=== PATIENT | male | born 1945 | race African-American/Black ===

== ENCOUNTER 2018-01-28 21:41 | Inpatient (IN) | payer MEDICARE, OTHER ==
[~2018-01-28] VITALS: Ht 167.6 cm; Wt 72.6 kg
[~2018-01-28 21:41] MED LIST: CEFTRIAXONE1 G1 IJ; FUROSEMIDE20 M1 ORAL; HYDRALAZINE HCL50 MG ORAL; LABETALOL HCL200 MG ORAL; MULTIVITAMINS1 EAC2 ORAL; NORVASC10 MG ORAL; TYLENOL EXTRA500 MG ORAL; TYLENOL PO; ZOCOR20 M1 ORAL
[2018-01-28] MEDS ORDERED: Pantoprazole Inj IVP ONE (21:45)
[2018-01-28] MEDS ORDERED: MILK OF MA400 MG/51 ORAL (21:57)
[2018-01-28] MEDS ORDERED: LASIX20 M1 ORAL (21:57)
[2018-01-28] MEDS ORDERED: DULCOLAX10 MG RC (21:57)
[2018-01-28] MEDS ORDERED: VITAMIN D1000 UNI1 ORAL (21:57)
[2018-01-28] MEDS ORDERED: ASPIR 8181 MG ORAL (21:57)
[2018-01-28] MEDS ORDERED: FLEET ENEMA133 ML RECTAL (21:57)
[2018-01-28 22:00] VITALS: BP 156/79
[2018-01-28 22:19] LABS: BASOPHILS % (AUTO) 0.5 % (0.0-2.0); EOSINOPHILS % (AUTO) 1.3 % (0.0-3.0); HEMATOCRIT 35.1 % (42.0-52.0); HEMOGLOBIN 11.6 G/DL (14.2-18.0); LYMPHOCYTES % (AUTO) 26.3 % (20.0-45.0); MEAN CORPUSCULAR VOLUME 93 FL (80-99); MONOCYTES % (AUTO) 5.4 % (1.0-10.0); NEUTROPHILS % (AUTO) 66.6 % (45.0-75.0); PLATELET COUNT 196 K/UL (150-450); RED BLOOD COUNT 3.76 M/UL (4.70-6.10); RED CELL DISTRIBUTION WIDTH 12.7 % (11.6-14.8); WHITE BLOOD COUNT 9.1 K/UL (4.8-10.8)
[2018-01-28 22:35] LABS: ANION GAP 12 mmol/L (5-15); BLOOD UREA NITROGEN 31 mg/dL (7-18); CALCIUM 10.5 MG/DL (8.5-10.1); CARBON DIOXIDE 26 MMOL/L (21-32); CHLORIDE 113 MMOL/L (98-107); CREATININE 2.2 MG/DL (0.55-1.30); POTASSIUM 3.2 MMOL/L (3.5-5.1); SODIUM 151 MMOL/L (136-145)
[2018-01-28 22:45] LABS: ALANINE AMINOTRANSFERASE 31 U/L (12-78); ALBUMIN 3.7 G/DL (3.4-5.0); ALBUMIN/GLOBULIN RATIO 0.9 (1.0-2.7); ALKALINE PHOSPHATASE 81 U/L (46-116); ASPARTATE AMINO TRANSFERASE 23 U/L (15-37); BILIRUBIN,TOTAL 0.3 MG/DL (0.2-1.0); CREATINE KINASE 285 U/L (26-308)
[2018-01-28 22:56] LABS: APPEARANCE,URINE SLIGHTLY CLOUDY; BILIRUBIN, URINE NEGATIVE (NEGATIVE); COLOR,URINE YELLOW; GLUCOSE, URINE (UA) NEGATIVE (NEGATIVE); KETONES,URINE NEGATIVE (NEGATIVE); LEUKOCYTE ESTERASE ,URINE 1+ (NEGATIVE); NITRITE,URINE NEGATIVE (NEGATIVE); PH,URINE 6 (4.5-8.0); PROTEIN,URINE 3+ (NEGATIVE); UROBILINOGEN,URINE NORMAL MG/DL (0.0-1.0)
--- NOTE | 2018-01-28 22:56 | Emergency Room Report ---
History of Present Illness General Chief Complaint: Fever Source: Patient, Medical Record, EMS Present Illness HPI 72-year-old male, history of CVA, with paresis, bedbound, brought in by shelter for vomiting, coffee-ground emesis, and fever. Patient with normal blood pressure. Patient was given Tylenol at 5 PM prior to arrival. He had a MAXIMUM TEMPERATURE of 102.4 per medical chart. Patient is awake alert oriented 2, however very poor historian. States that he vomited "a little", denies any black or bloody stool. Denies any current pain right now. Allergies: Coded Allergies: No Known Allergies (Unverified , 07/28/16) Patient History Past Medical History: see triage record Past Surgical History: none Pertinent Family History: none Reviewed Nursing Documentation: PMH: Agreed; PSxH: Agreed Nursing Documentation-PMH Past Medical History: No History, Except For Hx Hypertension: Yes Hx Cerebrovascular Accident: Yes - hemiplegia, hemiparesis left side Hx Seizures: Yes Hx Epilepsy: Yes Hx Aphasia: Yes Review of Systems All Other Systems: negative except mentioned in HPI Physical Exam Vital Signs Date Time Temp Pulse Resp B/P (MAP) Pulse Ox O2 Delivery O2 Flow Rate FiO2 01/28/18 21:34 98.4 84 18 134/82 97 Room Air 98.4 Sp02 EP Interpretation: reviewed, normal General Appearance: alert, moderate distress, thin, other - oriented x 2, Chronically Ill Head: normocephalic, atraumatic Eyes: bilateral eye normal inspection, bilateral eye PERRL, bilateral eye EOMI ENT: normal ENT inspection, normal pharynx, normal voice, moist mucus membranes Neck: normal inspection, full range of motion, supple Respiratory: normal inspection, lungs clear, normal breath sounds, no respiratory distress, no retraction, no wheezing, speaking full sentences, chest symmetrical Cardiovascular #1: normal inspection, regular rate, rhythm, no edema, normal capillary refill Cardiovascular #2: 2+ radial (R), 2+ radial (L) Gastrointestinal: other - RLQ mild tenderness no guarding or rigidity Rectal: other - yellow stool guiac NEG Genitourinary: no CVA tenderness Musculoskeletal: normal inspection, back normal, normal range of motion, non- tender Neurologic: alert, other - moves ext on command Psychiatric: normal inspection, judgement/insight normal, memory normal Skin: normal inspection, normal color, no rash, warm/dry, well hydrated, normal turgor Medical Decision Making Diagnostic Impression: Primary Impression: Acute renal failure Additional Impressions: UTI (urinary tract infection) Fever ER Course 72-year-old male, fever, vomiting, history of coffee-ground emesis DDX: Abscess, UTI, pneumonia, intra-abdominal pathology such as diverticulitis, appendicitis Coffee-ground emesis, gastritis, ulcer disease Plan: Obtain labs, ua, EKG, CXR CT abdo pelvis ER course: Patient has been monitored during ED stay, HD stable Given Protonix, fluids No active coffee-ground emesis, no melena Ceftriaxone given for UTI fluids given Disposition: Patient is to be admitted to telemetry Patient was signed out to Dr Swanson, who has accepted patient for admission. Please note that this Emergency Department Report was dictated using [employer] worker technology software, occasionally this can lead to erroneous entry secondary to interpretation by the dictation equipment. EKG Diagnostic Results EP Interpretation: Yes Rate: normal Rhythm: NSR ST Segments: No acute changes ASA given to patient: No Rhythm Strip EP Interpretation: Yes Rate: 88 Rhythm: NSR, no PVCs, no ectopy Chest X-ray CXR: Ordered: Yes 1 view Indication: Pain EP interpretation: Yes Interpretation: Cardiomegaly no infiltrates Impression: Cardiomegaly no infiltrates Electronically signed by Ric Traylor MD Laboratory Tests Test 01/28/18 21:50 01/28/18 22:30 White Blood Count 9.1 K/UL (4.8-10.8) Red Blood Count 3.76 M/UL (4.70-6.10) L Hemoglobin 11.6 G/DL (14.2-18.0) L Hematocrit 35.1 % (42.0-52.0) L Mean Corpuscular Volume 93 FL (80-99) Mean Corpuscular Hemoglobin 30.9 PG (27.0-31.0) Mean Corpuscular Hemoglobin Concent 33.2 G/DL (32.0-36.0) Red Cell Distribution Width 12.7 % (11.6-14.8) Platelet Count 196 K/UL (150-450) Mean Platelet Volume 6.7 FL (6.5-10.1) Neutrophils (%) (Auto) 66.6 % (45.0-75.0) Lymphocytes (%) (Auto) 26.3 % (20.0-45.0) Monocytes (%) (Auto) 5.4 % (1.0-10.0) Eosinophils (%) (Auto) 1.3 % (0.0-3.0) Basophils (%) (Auto) 0.5 % (0.0-2.0) Prothrombin Time 10.9 SEC (9.30-11.50) Prothrombin Time INR 1.0 (0.9-1.1) PTT 24 SEC (23-33) Sodium Level 151 MMOL/L (136-145) H Potassium Level 3.2 MMOL/L (3.5-5.1) L Chloride Level 113 MMOL/L (98-107) H Carbon Dioxide Level 26 MMOL/L (21-32) Anion Gap 12 mmol/L (5-15) Blood Urea Nitrogen 31 mg/dL (7-18) H Creatinine 2.2 MG/DL (0.55-1.30) H Estimate Glomerular Filtration Rate mL/min (>60) Glucose Level 116 MG/DL (74-106) H Lactic Acid Level 1.00 mmol/L (0.66-2.22) Calcium Level 10.5 MG/DL (8.5-10.1) H Total Bilirubin 0.3 MG/DL (0.2-1.0) Aspartate Amino Transferase (AST) 23 U/L (15-37) Alanine Aminotransferase (ALT) 31 U/L (12-78) Alkaline Phosphatase 81 U/L (46-116) Total Creatine Kinase 285 U/L (26-308) Troponin I 0.038 ng/mL (0.000-0.056) Pro-B-Type Natriuretic Peptide 426 pg/mL (0-125) H Total Protein 7.8 G/DL (6.4-8.2) Albumin 3.7 G/DL (3.4-5.0) Globulin 4.1 g/dL Albumin/Globulin Ratio 0.9 (1.0-2.7) L Urine Color Yellow Urine Appearance Slightly cloudy Urine pH 6 (4.5-8.0) Urine Specific [place] 1.010 (1.005-1.035) Urine Protein 3+ (NEGATIVE) H Urine Glucose (UA) Negative (NEGATIVE) Urine Ketones Negative (NEGATIVE) Urine Occult Blood 2+ (NEGATIVE) H Urine Nitrite Negative (NEGATIVE) Urine Bilirubin Negative (NEGATIVE) Urine Urobilinogen Normal MG/DL (0.0-1.0) Urine Leukocyte Esterase 1+ (NEGATIVE) H Urine RBC 5-10 /HPF (0 - 0) H Urine WBC 5-10 /HPF (0 - 0) H Urine Squamous Epithelial Cells None /LPF (NONE/OCC) Urine Bacteria Many /HPF (NONE) H Microbiology Date/Time Source Procedure Growth Status 01/28/18 22:00 Nasal Nares Influenza Types A,B Antigen (AUDREY) - Final Complete CT/MRI/US Diagnostic Results CT/MRI/US Diagnostic Results : Imaging Test Ordered: CT ABDO PELVIS Impression CT ABDOMEN & PELVIS Without Contrast: There is significant fecal distention of the distal colon compatible with impaction. Equivocal wall thickening of the bladder. Portions of the bladder compressed by descending colon limiting evaluation. Correlate with UA if there is concern for cystitis. Diverticulosis. No diverticulitis. Cholelithiasis. No evidence for appendicitis. Renal lesions. Some likely simple cysts. Others have density greater than that of simple cysts. No urinary tract calculi or hydronephrosis. Questionable wall thickening of the stomach may relate to underdistention. Correlate for gastritis. Adrenal thickening. Postop changes right femur. Cardiomegaly. Trace pericardial fluid and/or thickening. Small hiatal hernia. Atelectasis. Last Vital Signs Date Time Temp Pulse Resp B/P (MAP) Pulse Ox O2 Delivery O2 Flow Rate FiO2 01/28/18 21:34 98.4 84 18 134/82 97 Room Air 98.4 Disposition: ADMITTED INPATIENT Condition: Serious Referrals: KEY SHELLEY MD (PCP) Ric Traylor M.D. Jan 28, 2018 22:56
[2018-01-28] MEDS ORDERED: cefTRIAXone 1 GM in NS 55 ML IVPB ONE (23:15)
[2018-01-28] MEDS ORDERED: LORazepam Inj 2mg/ml 1ml IV ONE (23:45)
[2018-01-29 00:28] VITALS: BP 142/61
[2018-01-29 06:50] VITALS: BP 145/94
[2018-01-29] MEDS: Pantoprazole Inj IVP SCH ×2 (09:23→21:24)
[2018-01-29 09:45] VITALS: BP 99/52
--- NOTE | 2018-01-29 09:58 | Diagnostic Imaging Report ---
Indication: Chest pain Technique: One view of the chest Comparison: 07/30/2016 Findings: The heart is borderline enlarged. The lungs and pleural spaces are clear. The aorta is tortuous and calcified. No significant interim change Impression: No acute process Mild cardiomegaly
[2018-01-29 10:53] LABS: HEMATOCRIT 31.9 % (42.0-52.0); HEMOGLOBIN 10.3 G/DL (14.2-18.0); MEAN CORPUSCULAR VOLUME 95 FL (80-99); PLATELET COUNT 150 K/UL (150-450); RED BLOOD COUNT 3.37 M/UL (4.70-6.10); RED CELL DISTRIBUTION WIDTH 13.1 % (11.6-14.8); WHITE BLOOD COUNT 4.9 K/UL (4.8-10.8)
--- NOTE | 2018-01-29 10:58 | History & Physical ---
History and Physical History & Physicial Dictated for Int Med-Dr Rodriguez no. [id number]. JONATHAN HUANG Jan 29, 2018 10:58
--- NOTE | 2018-01-29 11:16 | GI Initial Consult Note ---
DeliaPatricia Nguyen N.P. 01/29/18 1116: History of Present Illness General Date patient seen: Jan 29, 2018 Time patient seen: 11:11 Reason for Hospitalization: Fever Referring physician: NIMISHA PEGUERO Reason for Consultation: COFFEE GROUNDS Present Illness HPI 72-year-old male, history of CVA, with paresis, bedbound, brought in by [facility] for vomiting, coffee-ground emesis, and fever. Patient with normal blood pressure. Patient was given Tylenol at 5 PM prior to arrival. He had a MAXIMUM TEMPERATURE of 102.4 per medical chart. Patient is awake alert oriented 2, however very poor historian. States that he vomited "a little", denies any black or bloody stool. Denies any current pain right now. GI consulted for reports of coffee round emesis. Since admission, no reported active N/V/D. ROS limited, patient is poor historian, but A&Ox3. States he had endoscopy last year, colonoscopy x 3 years but cannot recall any of the results. He presents today with mild anemia and electrolyte imbalance. Denies any abdominal pain, constipation, diarrhea. Home Meds Active Scripts Ceftriaxone Sodium (CEFTRIAXONE) 1 Gm Vial, 1 GM IJ DAILY for 7 Days, VIAL Prov:KY LACEY 08/03/16 Reported Medications Cholecalciferol (Vitamin D3)* (VITAMIN D*) 1,000 Unit Tablet, 1000 UNIT ORAL DAILY, #30 TAB 01/28/18 Magnesium Hydroxide* (MILK OF MAGNESIA*) 400 Mg/5 Ml Oral.susp, 30 ML ORAL DAILY PRN for Constipation, ML 01/28/18 Furosemide* (LASIX*) 20 Mg Tablet, 20 MG ORAL DAILY, TAB 01/28/18 Na Phos,M-B/Na Phos,Di-Ba* (FLEET ENEMA*) 133 Ml Enema, 133 ML RECTAL DAILY PRN for Constipation for 2 Days, ML 0 Refills 01/28/18 Bisacodyl (DULCOLAX) 10 Mg Supp.rect, 10 MG RC, SUPP 01/28/18 Aspirin* (ASPIR 81*) 81 Mg Tablet.dr, 81 MG ORAL DAILY, TAB 01/28/18 [Tylenol] No Conflict Check, 650 MG PO EVERY 4 HOURS PRN for TEMP 07/28/16 Acetaminophen* (TYLENOL EXTRA STRENGTH*) 500 Mg Tablet, 2 TAB ORAL EVERY 4 HOURS for For Pain Level <=5, TAB 0 Refills 07/28/16 Simvastatin (ZOCOR) 20 Mg Tablet, 20 MG ORAL BEDTIME, TAB 07/28/16 Amlodipine Besylate (Norvasc) 10 Mg Tablet, 10 MG ORAL DAILY, TAB 07/28/16 Multivitamins* (MULTIVITAMINS*) 1 Each Tablet, 1 TAB ORAL DAILY, TAB 0 Refills 07/28/16 Labetalol Hcl* (NORMODYNE*) 200 Mg Tablet, 2 TAB ORAL BID, TAB 07/28/16 Hydralazine Hcl* (HYDRALAZINE HCL*) 50 Mg Tablet, 50 MG ORAL QID, TAB 07/28/16 Med list reviewed/reconciled: Yes Allergies: Coded Allergies: No Known Allergies (Unverified , 07/28/16) Patient History Limited by: medical condition History Provided By: Patient, Medical Record PMH Narrative Past Medical History: see triage record Past Surgical History: none Pertinent Family History: none Reviewed Nursing Documentation: PMH: Agreed; PSxH: Agreed Nursing Documentation-PMH Past Medical History: No History, Except For Hx Hypertension: Yes Hx Cerebrovascular Accident: Yes - hemiplegia, hemiparesis left side Hx Seizures: Yes Hx Epilepsy: Yes Hx Aphasia: Yes Social History: Denies: smoking, alcohol use, drug use, other Physical Exam Vital Signs Date Time Temp Pulse Resp B/P (MAP) Pulse Ox O2 Delivery O2 Flow Rate FiO2 01/28/18 21:34 98.4 84 18 134/82 97 Room Air 98.4 Sp02 EP Interpretation: reviewed, normal Labs Laboratory Tests Test 01/28/18 21:50 01/28/18 22:30 01/29/18 10:40 White Blood Count 9.1 K/UL (4.8-10.8) 4.9 K/UL (4.8-10.8) Red Blood Count 3.76 M/UL (4.70-6.10) L 3.37 M/UL (4.70-6.10) L Hemoglobin 11.6 G/DL (14.2-18.0) L 10.3 G/DL (14.2-18.0) L Hematocrit 35.1 % (42.0-52.0) L 31.9 % (42.0-52.0) L Mean Corpuscular Volume 93 FL (80-99) 95 FL (80-99) Mean Corpuscular Hemoglobin 30.9 PG (27.0-31.0) 30.4 PG (27.0-31.0) Mean Corpuscular Hemoglobin Concent 33.2 G/DL (32.0-36.0) 32.1 G/DL (32.0-36.0) Red Cell Distribution Width 12.7 % (11.6-14.8) 13.1 % (11.6-14.8) Platelet Count 196 K/UL (150-450) 150 K/UL (150-450) Mean Platelet Volume 6.7 FL (6.5-10.1) 6.0 FL (6.5-10.1) L Neutrophils (%) (Auto) 66.6 % (45.0-75.0) % (45.0-75.0) Lymphocytes (%) (Auto) 26.3 % (20.0-45.0) % (20.0-45.0) Monocytes (%) (Auto) 5.4 % (1.0-10.0) % (1.0-10.0) Eosinophils (%) (Auto) 1.3 % (0.0-3.0) % (0.0-3.0) Basophils (%) (Auto) 0.5 % (0.0-2.0) % (0.0-2.0) Prothrombin Time 10.9 SEC (9.30-11.50) Prothromb Time International Ratio 1.0 (0.9-1.1) Activated Partial Thromboplast Time 24 SEC (23-33) Sodium Level 151 MMOL/L (136-145) H Potassium Level 3.2 MMOL/L (3.5-5.1) L Chloride Level 113 MMOL/L (98-107) H Carbon Dioxide Level 26 MMOL/L (21-32) Anion Gap 12 mmol/L (5-15) Blood Urea Nitrogen 31 mg/dL (7-18) H Creatinine 2.2 MG/DL (0.55-1.30) H Estimat Glomerular Filtration Rate mL/min (>60) Glucose Level 116 MG/DL (74-106) H Lactic Acid Level 1.00 mmol/L (0.66-2.22) Calcium Level 10.5 MG/DL (8.5-10.1) H Total Bilirubin 0.3 MG/DL (0.2-1.0) Aspartate Amino Transf (AST/SGOT) 23 U/L (15-37) Alanine Aminotransferase (ALT/SGPT) 31 U/L (12-78) Alkaline Phosphatase 81 U/L (46-116) Total Creatine Kinase 285 U/L (26-308) Troponin I 0.038 ng/mL (0.000-0.056) Pro-B-Type Natriuretic Peptide 426 pg/mL (0-125) H Total Protein 7.8 G/DL (6.4-8.2) Albumin 3.7 G/DL (3.4-5.0) Globulin 4.1 g/dL Albumin/Globulin Ratio 0.9 (1.0-2.7) L Urine Color Yellow Urine Appearance Slightly cloudy Urine pH 6 (4.5-8.0) Urine Specific [place] 1.010 (1.005-1.035) Urine Protein 3+ (NEGATIVE) H Urine Glucose (UA) Negative (NEGATIVE) Urine Ketones Negative (NEGATIVE) Urine Occult Blood 2+ (NEGATIVE) H Urine Nitrite Negative (NEGATIVE) Urine Bilirubin Negative (NEGATIVE) Urine Urobilinogen Normal MG/DL (0.0-1.0) Urine Leukocyte Esterase 1+ (NEGATIVE) H Urine RBC 5-10 /HPF (0 - 0) H Urine WBC 5-10 /HPF (0 - 0) H Urine Squamous Epithelial Cells None /LPF (NONE/OCC) Urine Bacteria Many /HPF (NONE) H Neutrophils % (Manual) Pending Lymphocytes % (Manual) Pending Platelet Estimate Pending Platelet Morphology Pending General Appearance: well appearing, no apparent distress, alert, thin Head: normocephalic EENT: PERRL/EOMI, normal ENT inspection Neck: supple Respiratory: normal breath sounds, no respiratory distress Cardiovascular: normal rate Gastrointestinal: normal inspection, non tender, soft, normal bowel sounds, non -distended Rectal: deferred Genitourinary: deferred Neurologic: normal inspection, alert, oriented x3, responsive Psychiatric: normal inspection, judgement/insight normal, memory normal Skin: normal inspection, normal color, no rash, warm/dry, palpation normal, well hydrated Lymphatic: normal inspection, no adenopathy Other Organ Systems Left side weakness. Current Medications Current Medications Medications (Trade) Dose Ordered Sig/Thien Route PRN Reason Start Time Stop Time Status Last Admin Dose Admin Dextrose/ Electrolytes 1,000 ml @ 75 mls/hr [id number] IV 01/29/18 12:00 02/28/18 11:59 Pantoprazole (Protonix) 40 mg EVERY 12 HOURS IVP 01/29/18 09:15 02/28/18 09:14 01/29/18 09:23 GI: Plan Problems: (1) Anemia (2) Coffee ground emesis Plan EGD scheduled for tomorrow. - CLD + IVFs, then NPO @ [facility]. - hold all blood thinners anemia work up OB stool r/o GI bleed monitor H&H, prn transfusions bowel regime ppi fu labs Discussed with Dr. Jones. Thank you for this patient referral, we will follow. KERRY JONES 01/30/18 1320: History of Present Illness General Reason for Hospitalization: Fever Present Illness Home Meds Active Scripts Ceftriaxone Sodium (CEFTRIAXONE) 1 Gm Vial, 1 GM IJ DAILY for 7 Days, VIAL Prov:KY LACEY 08/03/16 Reported Medications Cholecalciferol (Vitamin D3)* (VITAMIN D*) 1,000 Unit Tablet, 1000 UNIT ORAL DAILY, #30 TAB 01/28/18 Magnesium Hydroxide* (MILK OF MAGNESIA*) 400 Mg/5 Ml Oral.susp, 30 ML ORAL DAILY PRN for Constipation, ML 01/28/18 Furosemide* (LASIX*) 20 Mg Tablet, 20 MG ORAL DAILY, TAB 01/28/18 Na Phos,M-B/Na Phos,Di-Ba* (FLEET ENEMA*) 133 Ml Enema, 133 ML RECTAL DAILY PRN for Constipation for 2 Days, ML 0 Refills 01/28/18 Bisacodyl (DULCOLAX) 10 Mg Supp.rect, 10 MG RC, SUPP 01/28/18 Aspirin* (ASPIR 81*) 81 Mg Tablet.dr, 81 MG ORAL DAILY, TAB 01/28/18 [Tylenol] No Conflict Check, 650 MG PO EVERY 4 HOURS PRN for TEMP 07/28/16 Acetaminophen* (TYLENOL EXTRA STRENGTH*) 500 Mg Tablet, 2 TAB ORAL EVERY 4 HOURS for For Pain Level <=5, TAB 0 Refills 07/28/16 Simvastatin (ZOCOR) 20 Mg Tablet, 20 MG ORAL BEDTIME, TAB 07/28/16 Amlodipine Besylate (Norvasc) 10 Mg Tablet, 10 MG ORAL DAILY, TAB 07/28/16 Multivitamins* (MULTIVITAMINS*) 1 Each Tablet, 1 TAB ORAL DAILY, TAB 0 Refills 07/28/16 Labetalol Hcl* (NORMODYNE*) 200 Mg Tablet, 2 TAB ORAL BID, TAB 07/28/16 Hydralazine Hcl* (HYDRALAZINE HCL*) 50 Mg Tablet, 50 MG ORAL QID, TAB 07/28/16 Allergies: Coded Allergies: No Known Allergies (Unverified , 07/28/16) GI: Plan Plan The patient was seen and examined at bedside and all new and available data was reviewed in the patients chart. I agree with the above findings, impression and plan. (Patient seen earlier today. Signature stamp does not reflect patient encounter time.). - MD [facility] Patrick N.PFlorencio Jan 29, 2018 11:16 KERRY JONES Jan 30, 2018 13:20
[2018-01-29] MEDS ORDERED: Milk of Magnesia 30ml Ud ORAL PRN (11:45)
[2018-01-29 12:00] VITALS: BP 113/70
[2018-01-29] MEDS: D5W w/KCl 20mEq 1,000 ML IV SCH (12:46)
[2018-01-29] MEDS: HydrALAZINE 50mg tab ORAL SCH ×2 (12:58→19:12)
--- NOTE | 2018-01-29 13:29 | Diagnostic Imaging Report ---
Indication: Abdominal pain Technique: Spiral acquisitions obtained through the abdomen and pelvis. No oral contrast utilized, per emergency room physician request No IV contrast utilized, per emergency room physician request.. Multiplanar reconstructions were generated. Total dose length product 667.97 mGycm. CTDIvol(s) 12.33 mGy. Dose reduction achieved using automated exposure control Comparison: None Findings: The rectum is markedly distended by stool. There is considerable retained fecal debris in general. There are colonic diverticula. No evidence of diverticulitis the appendix is normal. No small bowel distention. The distal esophagus, stomach, duodenum are unremarkable. Lack of IV contrast limits assessment of the solid organs. The liver is grossly unremarkable. The gallbladder contains multiple gallstones. The gallbladder wall is not thickened. The pancreas, spleen, right adrenal are unremarkable. Left adrenal is diffusely bulky. The kidneys demonstrate multiple exophytic masses which demonstrate indeterminate soft tissue attenuation, more numerous on the left than on the right. There are also fluid attenuation cysts present bilaterally. No retroperitoneal or mesenteric mass or adenopathy. The bladder is thick walled. The prostate is mildly enlarged. The included lung bases are clear. The bones demonstrate degenerative spondylosis changes. There is evidence of prior surgery to the right femur. The heart is mildly enlarged. There is minimal anterior pericardial thickening versus fluid. Impression: Evidence of constipation and likely rectal fecal impaction No acute process otherwise Colonic diverticulosis Cholelithiasis Multiple renal lesions of indeterminate attenuation. Most likely proteinaceous cysts, given evidence of multiple bilateral renal cysts and absence of solid lesions on prior sonogram of 07/29/2016. Nonetheless, repeat sonography is recommended. This was discussed in person with Dr. Rodriguez Evidence of bladder wall thickening, may indicate cystitis or chronic bladder outlet obstruction Cardiomegaly Small anterior wall pericardial thickening versus fluid Nonspecific diffuse left adrenal enlargement. This agrees with the preliminary interpretation provided overnight by [facility] teleradiology service. The CT scanner at [facility] is accredited by the [employer] and the scans are performed using protocols designed to limit radiation exposure to as low as reasonably achievable to attain images of sufficient resolution adequate for diagnostic evaluation.
[2018-01-29] MEDS: Piperacillin/Tazobactam 3.375 GM in D5W 110 ML IVPB SCH ×2 (15:33→22:55)
[2018-01-29 16:00] VITALS: BP 114/82
[2018-01-29] MEDS: Vancomycin 1 GM in D5W 275 ML IVPB SCH (18:02)
--- NOTE | 2018-01-29 18:46 | History and Physical Report ---
DATE OF ADMISSION: 01/28/2018 CHIEF COMPLAINT: The patient is a 72-year-old male presents with chief complaint of coffee-ground emesis. HISTORY OF PRESENT ILLNESS: The patient is a resident of [facility]. According to staff at [facility], the patient began to experience nausea and vomiting yesterday January 28, 2018. Nursing staff reports large amounts of coffee-ground emesis. The patient was transported to [place] emergency room. Initial hemoglobin was found to be 11.6. The patient is admitted with probable upper gastrointestinal hemorrhage. REVIEW OF SYSTEMS: CONSTITUTIONAL: The patient denies weight loss or weight gain. The patient has had fevers of up to 102 degrees Fahrenheit at the nursing note. HEENT: The patient denies ear or throat pain. The patient denies headache. CARDIOVASCULAR: The patient denies palpitations or chest pain. CHEST: The patient denies wheeze or shortness of breath. ABDOMINAL: The patient complains of nausea and vomiting as above. The patient complains of hematemesis as above. The patient denies diarrhea or constipation. GENITOURINARY: The patient denies dysuria or increased frequency of urination. NEUROMUSCULAR: The patient denies seizures or generalized weakness. The patient does have left hemiplegia. PAST MEDICAL HISTORY: Significant. 1. Hypertension. 2. Hypercholesterolemia. 3. Seizure disorder. 4. History of cerebrovascular disease. 5. Left hemiplegia. 6. Hypercholesterolemia. 7. Expressive aphasia. PAST SURGICAL HISTORY: Significant for inguinal hernia repair. CURRENT MEDICATIONS: 1. Amlodipine 10 mg p.o. daily. 2. Aspirin 81 mg p.o. daily. 3. Labetalol 200 mg p.o. twice daily. 4. Lasix 20 mg p.o. daily. 5. Multivitamin p.o. daily. 6. Simvastatin 20 mg p.o. at bedtime. 7. Tylenol 650 mg p.o. q.4 hours. 8. Vitamin D 1000 units p.o. daily. ALLERGIES: No known drug allergies. SOCIAL HISTORY: The patient is and is a resident of [facility]. The patient denies tobacco use having quit in 2015. The patient denies alcohol use. PHYSICAL EXAMINATION: VITAL SIGNS: Temperature 98.2, respirations 21, pulse 87, blood pressure 156/79. GENERAL: The patient is well-developed and well-nourished male, in no apparent distress. HEENT: Eyes, pupils are equal and responsive to light and accommodation. Extraocular movements are intact. NECK: Supple without lymphadenopathy. CHEST: Lungs are clear to auscultation bilaterally without wheezes or rales. CARDIOVASCULAR: Regular rate. S1 and S2 are normal without murmurs, rubs, or gallops. ABDOMEN: Soft, nontender, and nondistended. Positive bowel sounds. No evidence of hepatosplenomegaly. Currently, no rebound or guarding noted. EXTREMITIES: Negative for clubbing, cyanosis, or edema. RECTAL/GENITAL: Refused. NEUROLOGIC: The patient does have a left hemiparesis. Otherwise right-sided motor strength 4/5 on the right and 2/5 on the left. LABORATORY STUDIES: WBC 9.1, hemoglobin 11.6, hematocrit 35.1, platelets 196,000. Sodium 151, potassium 3.2, chloride 113, CO2 26, BUN 31, creatinine 2.2, glucose 116. Troponin elevated at 0.038. BNP elevated at 426. ASSESSMENT: This is a 72-year-old male. 1. Hematemesis. 2. Probable upper gastrointestinal hemorrhage. 3. Hypertension. 4. Hypercholesterolemia. 5. Seizure disorder. 6. Cerebrovascular disease. 7. Left hemiplegia. 8. Hypercholesterolemia. 9. Expressive aphasia. TREATMENT: 1. Upper gastrointestinal hemorrhage/hematemesis. A Gastroenterology consultation obtained with Dr. Petar Hicks. The patient may require endoscopy during this hospitalization. The patient has been placed empirically on Protonix. 2. Fever, this has resolved during the hospitalization. 3. Hypertension. Continue Lopressor and Norvasc as above. Hydralazine, labetalol, and amlodipine as above. 4. Cerebrovascular disease/left hemiplegia. 5. Seizure disorder. 6. Hypercholesteremia. Continue Lipitor as above. 7. Expressive aphasia. Sharif Daniel M.D. DR: Adeline JOB#: [id number] CC:
[2018-01-29 20:00] VITALS: BP 120/76
[2018-01-29] MEDS: Labetalol 200mg tab ORAL SCH (21:23)
[2018-01-29 21:37] LABS: HEMATOCRIT 30.5 % (42.0-52.0); HEMOGLOBIN 10.2 G/DL (14.2-18.0); MEAN CORPUSCULAR VOLUME 95 FL (80-99); PLATELET COUNT 164 K/UL (150-450); RED BLOOD COUNT 3.23 M/UL (4.70-6.10); RED CELL DISTRIBUTION WIDTH 13.3 % (11.6-14.8)
[2018-01-29 21:46] LABS: WHITE BLOOD COUNT 24.4 K/UL (4.8-10.8)
[2018-01-30] VITALS: BP 105/60
[2018-01-30] MEDS: HydrALAZINE 50mg tab ORAL SCH ×3 (00:20→11:24)
[2018-01-30] MEDS: D5W w/KCl 20mEq 1,000 ML IV SCH ×3 (02:17→18:21)
[2018-01-30 04:00] VITALS: BP 99/50
[2018-01-30] MEDS: Piperacillin/Tazobactam 3.375 GM in D5W 110 ML IVPB SCH ×3 (06:35→21:41)
[2018-01-30 06:51] LABS: INR 1.2 (0.9-1.1)
[2018-01-30 06:54] LABS: ANION GAP 13 mmol/L (5-15); BLOOD UREA NITROGEN 41 mg/dL (7-18); CALCIUM 9.6 MG/DL (8.5-10.1); CARBON DIOXIDE 24 MMOL/L (21-32); CHLORIDE 115 MMOL/L (98-107); CREATININE 3.1 MG/DL (0.55-1.30); HEMATOCRIT 31.1 % (42.0-52.0); HEMOGLOBIN 10.6 G/DL (14.2-18.0); MEAN CORPUSCULAR VOLUME 94 FL (80-99); PLATELET COUNT 168 K/UL (150-450); POTASSIUM 3.8 MMOL/L (3.5-5.1); RED BLOOD COUNT 3.31 M/UL (4.70-6.10); RED CELL DISTRIBUTION WIDTH 13.4 % (11.6-14.8); SODIUM 152 MMOL/L (136-145)
--- NOTE | 2018-01-30 07:17 | General Progress Note ---
Assessment/Plan Status: stable Assessment/Plan 1. Probable upper gastrointestinal hemorrhage. 2. UTI 3. Hypertension. 4. Hypercholesterolemia. 5. Non compliance with treatment 6. Cerebrovascular disease. 7. Left hemiplegia. 8. Hypercholesterolemia. 9. Expressive aphasia. 10. GI-DVT prophylaxia plan: Non compliant to IV abx, ID input to modify abx is appreciated New Leukocytosis, leukemoid reaction ?! current management ST eval increase IV fluid Subjective Allergies: Coded Allergies: No Known Allergies (Unverified , 07/28/16) Objective Last 24 Hour Vital Signs Date Time Temp Pulse Resp B/P (MAP) Pulse Ox O2 Delivery O2 Flow Rate FiO2 01/30/18 06:00 103/58 01/30/18 04:00 97.0 95 21 99/50 99 Room Air 97.0 01/30/18 04:00 99 01/30/18 00:20 100/60 01/30/18 00:00 97.2 98 20 105/60 98 97.2 01/30/18 00:00 100 01/29/18 21:23 111 120/76 01/29/18 20:00 97.7 111 22 120/76 100 Room Air 97.7 01/29/18 20:00 118 01/29/18 19:12 114/82 01/29/18 16:00 97.8 110 20 114/82 97 Room Air 97.8 01/29/18 16:00 92 01/29/18 12:58 113/70 01/29/18 12:00 117 01/29/18 12:00 98.1 110 19 113/70 97 Room Air 98.1 01/29/18 09:45 98.1 116 20 99/52 95 Room Air 98.1 01/29/18 09:41 97.7 114 26 104/53 98 Room Air 98.0 Intake and Output 01/29/18 01/30/18 19:00 07:00 Intake Total 380 ml Balance 380 ml Intake Oral 380 ml # Voids 2 1 # Bowel Movements 1 Laboratory Tests 01/29/18 10:40: White Blood Count 4.9, Red Blood Count 3.37L, Hemoglobin 10.3L, Hematocrit 31.9L , Mean Corpuscular Volume 95, Mean Corpuscular Hemoglobin 30.4, Mean Corpuscular Hemoglobin Concent 32.1, Red Cell Distribution Width 13.1, Platelet Count 150, Mean Platelet Volume 6.0L, Neutrophils (%) (Auto) , Lymphocytes (%) ( Auto) , Monocytes (%) (Auto) , Eosinophils (%) (Auto) , Basophils (%) (Auto) , Differential Total Cells Counted 100, Neutrophils % (Manual) 89H, Lymphocytes % (Manual) 1L, Monocytes % (Manual) 4, Eosinophils % (Manual) 0, Basophils % ( Manual) 0, Band Neutrophils 6, Platelet Estimate Adequate, Platelet Morphology Normal, Red Blood Cell Morphology , Hypochromasia 1+, Troponin I 0.047 01/29/18 16:00: Stool Occult Blood [Pending] 01/29/18 21:27: White Blood Count 24.4#*H, Red Blood Count 3.23L, Hemoglobin 10.2L, Hematocrit 30.5L, Mean Corpuscular Volume 95, Mean Corpuscular Hemoglobin 31.5H, Mean Corpuscular Hemoglobin Concent 33.3, Red Cell Distribution Width 13.3, Platelet Count 164, Mean Platelet Volume 7.4, Neutrophils (%) (Auto) , Lymphocytes (%) ( Auto) , Monocytes (%) (Auto) , Eosinophils (%) (Auto) , Basophils (%) (Auto) , Differential Total Cells Counted 100, Neutrophils % (Manual) 88H, Lymphocytes % (Manual) 7L, Monocytes % (Manual) 5, Eosinophils % (Manual) 0, Basophils % ( Manual) 0, Band Neutrophils 0, Platelet Estimate Adequate, Platelet Morphology Normal, Hypochromasia 1+, Anisocytosis 1+ 01/30/18 05:10: White Blood Count [Pending], Red Blood Count [Pending], Hemoglobin [Pending], Hematocrit [Pending], Mean Corpuscular Volume [Pending], Mean Corpuscular Hemoglobin [Pending], Mean Corpuscular Hemoglobin Concent [Pending], Red Cell Distribution Width [Pending], Platelet Count [Pending], Mean Platelet Volume [ Pending], Neutrophils (%) (Auto) [Pending], Lymphocytes (%) (Auto) [Pending], Monocytes (%) (Auto) [Pending], Eosinophils (%) (Auto) [Pending], Basophils (%) (Auto) [Pending], Reticulocyte Count [Pending], Prothrombin Time [Pending], Prothromb Time International Ratio [Pending], Activated Partial Thromboplast Time [Pending], Sodium Level 152H, Potassium Level 3.8, Chloride Level 115H, Carbon Dioxide Level 24, Anion Gap 13, Blood Urea Nitrogen 41H, Creatinine 3.1H , Estimat Glomerular Filtration Rate , Glucose Level 83, Calcium Level 9.6, Phosphorus Level [Pending], Magnesium Level [Pending], Iron Level [Pending], Unsaturated Iron Binding [Pending], Ferritin [Pending], Vitamin B12 Level [ Pending], Folate [Pending], Thyroid Stimulating Hormone (TSH) [Pending], Free Thyroxine [Pending] Height (Feet): 5 Height (Inches): 6.00 Weight (Pounds): 160 General Appearance: no apparent distress EENT: pharyngeal erythema Neck: supple Cardiovascular: normal rate Respiratory/Chest: lungs clear Abdomen: soft Extremities: other - left hemiparesis, subtle Neurologic: disoriented - mininmal left facial hemiParesis Nilesh Rodriguez MD Jan 30, 2018 07:17
[2018-01-30 07:35] LABS: WHITE BLOOD COUNT 28.4 K/UL (4.8-10.8)
[2018-01-30 07:36] LABS: % IRON SATURATION 4 % (15-50); IRON 8 ug/dL (50-175); TOTAL IRON BINDING CAPACITY 213 ug/dL (250-450)
[2018-01-30 07:51] LABS: PHOSPHORUS 3.8 MG/DL (2.5-4.9)
[2018-01-30 08:00] VITALS: BP 115/55
[2018-01-30] MEDS: Labetalol 200mg tab ORAL SCH ×2 (09:00→21:40)
[2018-01-30] MEDS ORDERED: Vitamin D 1000 IU Tab ORAL SCH (09:00)
[2018-01-30] MEDS: Pantoprazole Inj IVP SCH ×2 (09:48→21:39)
--- NOTE | 2018-01-30 10:13 | Anethesia Preoperative Eval ---
Anesthesia Pre-op PMH/ROS General Date of Evaluation: Jan 30, 2018 Time of Evaluation: 10:07 Anesthesiologist: brynn ASA Score: ASA 4 Mallampati Score Class I : Soft palate, uvula, fauces, pillars visible Class II: Soft palate, uvula, fauces visible Class III: Soft palate, base of uvula visible Class IV: Only hard plate visible Mallampati Classification: Class II Surgeon: gregorio Diagnosis: gi bleed Surgical Procedure: egd Anesthesia History: none Social History: smoking - former smoker Family History: no anesthesia problems Allergies: Coded Allergies: No Known Allergies (Unverified , 07/28/16) Medications: see eMAR Past Medical History Cardiovascular: Reports: HTN Gastrointestinal/Genitourinary: Reports: ESRD - on hemodialysis, other - arf, gibleed, Neurologic/Psychiatric: Reports: CVA - expressive aphasia, other - seizure disorder Hematology/Immune: Reports: anemia, other - sepsis Anesthesia Pre-op Phys. Exam Physician Exam Last Vital Signs Date Time Temp Pulse Resp B/P (MAP) Pulse Ox O2 Delivery O2 Flow Rate FiO2 01/30/18 08:00 98.2 84 20 115/55 95 Room Air 98.2 Constitutional: NAD Neurologic: CN 2-12 intact Cardiovascular: RRR Respiratory: CTA Gastrointestinal: S/NT/ND Airway Exam Mallampati Score: Class II MO: limited Neck: short TMD: 2fb ROM: limited Teeth: missing Anesthesia Pre-op A/P Labs Hematology Test 01/29/18 10:40 01/29/18 21:27 01/30/18 05:10 White Blood Count 4.9 K/UL (4.8-10.8) 24.4 K/UL (4.8-10.8) #*H 28.4 K/UL (4.8-10.8) *H Red Blood Count 3.37 M/UL (4.70-6.10) L 3.23 M/UL (4.70-6.10) L 3.31 M/UL (4.70-6.10) L Hemoglobin 10.3 G/DL (14.2-18.0) L 10.2 G/DL (14.2-18.0) L 10.6 G/DL (14.2-18.0) L Hematocrit 31.9 % (42.0-52.0) L 30.5 % (42.0-52.0) L 31.1 % (42.0-52.0) L Mean Corpuscular Volume 95 FL (80-99) 95 FL (80-99) 94 FL (80-99) Mean Corpuscular Hemoglobin 30.4 PG (27.0-31.0) 31.5 PG (27.0-31.0) H 31.9 PG (27.0-31.0) H Mean Corpuscular Hemoglobin Concent 32.1 G/DL (32.0-36.0) 33.3 G/DL (32.0-36.0) 34.0 G/DL (32.0-36.0) Red Cell Distribution Width 13.1 % (11.6-14.8) 13.3 % (11.6-14.8) 13.4 % (11.6-14.8) Platelet Count 150 K/UL (150-450) 164 K/UL (150-450) 168 K/UL (150-450) Mean Platelet Volume 6.0 FL (6.5-10.1) L 7.4 FL (6.5-10.1) 8.7 FL (6.5-10.1) Neutrophils (%) (Auto) % (45.0-75.0) % (45.0-75.0) % (45.0-75.0) Lymphocytes (%) (Auto) % (20.0-45.0) % (20.0-45.0) % (20.0-45.0) Monocytes (%) (Auto) % (1.0-10.0) % (1.0-10.0) % (1.0-10.0) Eosinophils (%) (Auto) % (0.0-3.0) % (0.0-3.0) % (0.0-3.0) Basophils (%) (Auto) % (0.0-2.0) % (0.0-2.0) % (0.0-2.0) Differential Total Cells Counted 100 100 100 Neutrophils % (Manual) 89 % (45-75) H 88 % (45-75) H 76 % (45-75) H Lymphocytes % (Manual) 1 % (20-45) L 7 % (20-45) L 8 % (20-45) L Monocytes % (Manual) 4 % (1-10) 5 % (1-10) 9 % (1-10) Eosinophils % (Manual) 0 % (0-3) 0 % (0-3) 0 % (0-3) Basophils % (Manual) 0 % (0-2) 0 % (0-2) 0 % (0-2) Band Neutrophils 6 % (0-8) 0 % (0-8) 7 % (0-8) Platelet Estimate Adequate Adequate Adequate Platelet Morphology Normal Normal Normal Red Blood Cell Morphology Hypochromasia 1+ 1+ Anisocytosis 1+ Reticulocyte Count 1.0 % (0.0-2.0) Coagulation Test 01/30/18 05:10 Prothrombin Time 13.1 SEC (9.30-11.50) H Prothromb Time International Ratio 1.2 (0.9-1.1) H Activated Partial Thromboplast Time 32 SEC (23-33) Chemistry Test 01/29/18 10:40 01/30/18 05:10 Troponin I 0.047 ng/mL (0.000-0.056) Sodium Level 152 MMOL/L (136-145) H Potassium Level 3.8 MMOL/L (3.5-5.1) Chloride Level 115 MMOL/L (98-107) H Carbon Dioxide Level 24 MMOL/L (21-32) Anion Gap 13 mmol/L (5-15) Blood Urea Nitrogen 41 mg/dL (7-18) H Creatinine 3.1 MG/DL (0.55-1.30) H Estimat Glomerular Filtration Rate mL/min (>60) Glucose Level 83 MG/DL (74-106) Calcium Level 9.6 MG/DL (8.5-10.1) Phosphorus Level 3.8 MG/DL (2.5-4.9) Magnesium Level 1.8 MG/DL (1.8-2.4) Iron Level 8 ug/dL (50-175) L Total Iron Binding Capacity 213 ug/dL (250-450) L Percent Iron Saturation 4 % (15-50) L Unsaturated Iron Binding 205 ug/dL (112-346) Ferritin 111 NG/ML (8-388) Vitamin B12 Level 898 PG/ML (193-986) Folate 4.9 NG/ML (8.6-58.9) L Thyroid Stimulating Hormone (TSH) 0.667 uiU/mL (0.358-3.740) Free Thyroxine 1.24 NG/DL (0.76-1.46) Risk Assessment & Plan Assessment: [email or web address] Plan: patient's clinical status must be optimized. elevated wbc with left shift within 24 hours. mac Status Change Before Surgery: Yes - wbc went from 4.9 to 24.4 within 24 hours and is trending up. this am wbc 28.4 Pre-Antibiotics Drug: HOANG Witt Jan 30, 2018 10:13
[2018-01-30] MEDS ORDERED: Atropine Inj 1mg/10ml Syr IV PRN (10:15)
[2018-01-30] MEDS ORDERED: DiphenhydrAMINE 50mg/ml Inj IVP PRN (10:15)
[2018-01-30] MEDS ORDERED: Midazolam 2mg/2ml Inj IVP PRN (10:15)
[2018-01-30] MEDS ORDERED: fentaNYL 100 mcg/2 mL IV PRN (10:15)
[2018-01-30] MEDS ORDERED: Fleet's Mineral Oil Enema RECTAL ONE (11:00)
--- NOTE | 2018-01-30 11:53 | Consultation ---
History of Present Illness General Date patient seen: Jan 30, 2018 Time patient seen: 11:28 Chief Complaint: Fever Referring physician: NIMISHA PEGUERO Reason for Consultation: COFFEE GROUNDS Present Illness HPI 72 y/o M with hx of HTN, HLD, CVA w/ residual L hemiparesis, former smoker, hx of proteus bacteremia/pyelonephritis 07/2016, seizure disorder, expressive aphasia, bedbound, [place] is brought to ED on 01/28 with coffee-ground emesis and fever. Febrile up to 102.4.none here. Patient with no leukocytosis upon admission but developed leukocytosis yesterday up to 24 and now to 28. Bcx NTD. CXR and CT abd/p with no acute process. Plan for EGD. No black or bloody stools, abd pain, diarrhea, cough, SOB, urinary symptoms. Allergies: Coded Allergies: No Known Allergies (Unverified , 07/28/16) Medication History Scheduled Acetaminophen* (Tylenol Extra Strength*), 2 TAB ORAL EVERY 4 HOURS, (Reported) Amlodipine Besylate (Norvasc), 10 MG ORAL DAILY, (Reported) Aspirin* (Aspir 81*), 81 MG ORAL DAILY, (Reported) Ceftriaxone Sodium (Ceftriaxone), 1 GM IJ DAILY Cholecalciferol (Vitamin D3)* (Vitamin D*), 1,000 UNIT ORAL DAILY, (Reported) Furosemide* (Lasix*), 20 MG ORAL DAILY, (Reported) Hydralazine Hcl* (Hydralazine Hcl*), 50 MG ORAL QID, (Reported) Labetalol Hcl* (Normodyne*), 2 TAB ORAL BID, (Reported) Multivitamins* (Multivitamins*), 1 TAB ORAL DAILY, (Reported) Simvastatin (Zocor), 20 MG ORAL BEDTIME, (Reported) Scheduled PRN Magnesium Hydroxide* (Milk Of Magnesia*), 30 ML ORAL DAILY PRN for Constipation, (Reported) Na Phos,M-B/Na Phos,Di-Ba* (Fleet Enema*), 133 ML RECTAL DAILY PRN for Constipation, (Reported) [Tylenol], 650 MG PO EVERY 4 HOURS PRN for TEMP, (Reported) Miscellaneous Medications Bisacodyl (Dulcolax), 10 MG RC, (Reported) Patient History Healthcare decision maker Resuscitation status Advanced Directive on File Patient History Narrative Pmx: as above Shx: The patient is and is a resident of [facility]. The patient denies tobacco use having quit in 2016. The patient denies alcohol use. Fhx: non contributory Review of Systems All Other Systems: negative except mentioned in HPI Physical Exam Physical Exam Narrative GENERAL: The patient is well-developed and well-nourished male, in no apparent distress. HEENT: Eyes, pupils are equal and responsive to light and accommodation. Extraocular movements are intact. NECK: Supple without lymphadenopathy. CHEST: Lungs are clear to auscultation bilaterally without wheezes or rales. CARDIOVASCULAR: Regular rate. S1 and S2 are normal without murmurs, rubs, or gallops. ABDOMEN: Soft, nontender, and nondistended. Positive bowel sounds. No evidence of hepatosplenomegaly. Currently, no rebound or guarding noted. EXTREMITIES: Negative for clubbing, cyanosis, or edema. Last 24 Hour Vital Signs Date Time Temp Pulse Resp B/P (MAP) Pulse Ox O2 Delivery O2 Flow Rate FiO2 01/30/18 08:00 98.2 84 20 115/55 95 Room Air 98.2 01/30/18 06:00 103/58 01/30/18 04:00 97.0 95 21 99/50 99 Room Air 97.0 01/30/18 04:00 99 01/30/18 00:20 100/60 01/30/18 00:00 97.2 98 20 105/60 98 97.2 01/30/18 00:00 100 01/29/18 21:23 111 120/76 01/29/18 20:00 97.7 111 22 120/76 100 Room Air 97.7 01/29/18 20:00 118 01/29/18 19:12 114/82 01/29/18 16:00 97.8 110 20 114/82 97 Room Air 97.8 01/29/18 16:00 92 01/29/18 12:58 113/70 01/29/18 12:00 117 01/29/18 12:00 98.1 110 19 113/70 97 Room Air 98.1 Intake and Output 01/29/18 01/30/18 19:00 07:00 Intake Total 380 ml 113.0 ml Balance 380 ml 113.0 ml Intake Oral 380 ml IV Total 113.0 ml # Voids 2 1 # Bowel Movements 1 Laboratory Tests Test 01/29/18 16:00 01/29/18 21:27 01/30/18 05:10 Stool Occult Blood Pending White Blood Count 24.4 K/UL (4.8-10.8) #*H 28.4 K/UL (4.8-10.8) *H Red Blood Count 3.23 M/UL (4.70-6.10) L 3.31 M/UL (4.70-6.10) L Hemoglobin 10.2 G/DL (14.2-18.0) L 10.6 G/DL (14.2-18.0) L Hematocrit 30.5 % (42.0-52.0) L 31.1 % (42.0-52.0) L Mean Corpuscular Volume 95 FL (80-99) 94 FL (80-99) Mean Corpuscular Hemoglobin 31.5 PG (27.0-31.0) H 31.9 PG (27.0-31.0) H Mean Corpuscular Hemoglobin Concent 33.3 G/DL (32.0-36.0) 34.0 G/DL (32.0-36.0) Red Cell Distribution Width 13.3 % (11.6-14.8) 13.4 % (11.6-14.8) Platelet Count 164 K/UL (150-450) 168 K/UL (150-450) Mean Platelet Volume 7.4 FL (6.5-10.1) 8.7 FL (6.5-10.1) Neutrophils (%) (Auto) % (45.0-75.0) % (45.0-75.0) Lymphocytes (%) (Auto) % (20.0-45.0) % (20.0-45.0) Monocytes (%) (Auto) % (1.0-10.0) % (1.0-10.0) Eosinophils (%) (Auto) % (0.0-3.0) % (0.0-3.0) Basophils (%) (Auto) % (0.0-2.0) % (0.0-2.0) Differential Total Cells Counted 100 100 Neutrophils % (Manual) 88 % (45-75) H 76 % (45-75) H Lymphocytes % (Manual) 7 % (20-45) L 8 % (20-45) L Monocytes % (Manual) 5 % (1-10) 9 % (1-10) Eosinophils % (Manual) 0 % (0-3) 0 % (0-3) Basophils % (Manual) 0 % (0-2) 0 % (0-2) Band Neutrophils 0 % (0-8) 7 % (0-8) Platelet Estimate Adequate Adequate Platelet Morphology Normal Normal Hypochromasia 1+ Anisocytosis 1+ Reticulocyte Count 1.0 % (0.0-2.0) Prothrombin Time 13.1 SEC (9.30-11.50) H Prothromb Time International Ratio 1.2 (0.9-1.1) H Activated Partial Thromboplast Time 32 SEC (23-33) Sodium Level 152 MMOL/L (136-145) H Potassium Level 3.8 MMOL/L (3.5-5.1) Chloride Level 115 MMOL/L (98-107) H Carbon Dioxide Level 24 MMOL/L (21-32) Anion Gap 13 mmol/L (5-15) Blood Urea Nitrogen 41 mg/dL (7-18) H Creatinine 3.1 MG/DL (0.55-1.30) H Estimat Glomerular Filtration Rate mL/min (>60) Glucose Level 83 MG/DL (74-106) Calcium Level 9.6 MG/DL (8.5-10.1) Phosphorus Level 3.8 MG/DL (2.5-4.9) Magnesium Level 1.8 MG/DL (1.8-2.4) Iron Level 8 ug/dL (50-175) L Total Iron Binding Capacity 213 ug/dL (250-450) L Percent Iron Saturation 4 % (15-50) L Unsaturated Iron Binding 205 ug/dL (112-346) Ferritin 111 NG/ML (8-388) Vitamin B12 Level 898 PG/ML (193-986) Folate 4.9 NG/ML (8.6-58.9) L Thyroid Stimulating Hormone (TSH) 0.667 uiU/mL (0.358-3.740) Free Thyroxine 1.24 NG/DL (0.76-1.46) Height (Feet): 5 Height (Inches): 6.00 Weight (Pounds): 160 Medications Current Medications Medications (Trade) Dose Ordered Sig/Thien Route PRN Reason Start Time Stop Time Status Last Admin Dose Admin Acetaminophen (Tylenol) 650 mg Q4H PRN ORAL Mild Pain/Temp > 100.5 01/29/18 11:45 02/28/18 11:44 Al Hydroxide/Mg Hydroxide (Mylanta) 15 ml Q1H PRN ORAL gi upset 01/30/18 10:15 01/30/18 18:00 Amlodipine Besylate (Norvasc) 10 mg DAILY ORAL 01/30/18 09:00 03/01/18 08:59 Atorvastatin Calcium (Lipitor) 10 mg BEDTIME ORAL 01/29/18 21:00 02/28/18 20:59 01/29/18 21:24 Atropine Sulfate (Atropine) 0.5 mg Q5M PRN IV HR less than 45 BPM 01/30/18 10:15 01/30/18 18:00 Dextrose/ Electrolytes 1,000 ml @ 100 mls/hr Q10H IV 01/30/18 09:00 03/01/18 08:59 01/30/18 09:49 Diphenhydramine HCl (Benadryl) 25 mg Q15M PRN IVP Itching 01/30/18 10:15 01/30/18 18:00 Fentanyl Citrate (Sublimaze 100 mcg/2 mL) 25 mcg Q10M PRN IV Moderate Pain (Pain Scale 4-6) 01/30/18 10:15 01/30/18 18:00 Furosemide (Lasix) 20 mg DAILY ORAL 01/30/18 09:00 03/01/18 08:59 Hydralazine HCl (Apresoline) 5 mg Q30M PRN IV SBP>160 /DBP>90 01/30/18 10:15 01/30/18 18:00 Hydralazine HCl (Apresoline) 50 mg Q6HR ORAL 01/29/18 12:30 02/28/18 12:29 01/30/18 00:20 Iron Sucrose 100 mg/Sodium Chloride 115 ml @ 230 mls/hr BEDTIME IV 01/30/18 21:00 02/03/18 21:29 Labetalol HCl (Normodyne) 200 mg Q12HR ORAL 01/29/18 21:00 02/28/18 20:59 01/29/18 21:23 Magnesium Hydroxide (Mom) 30 ml DAILYPRN PRN ORAL Constipation 01/29/18 11:45 02/28/18 11:44 Midazolam HCl (Versed 2mg/2ml vial) 1 mg Q15M PRN IVP For Anxiety 01/30/18 10:15 01/30/18 18:00 Multivitamins (Multivitamins) 1 tab DAILY ORAL 01/30/18 09:00 03/01/18 08:59 Ondansetron HCl (Zofran) 4 mg Q1H PRN IVP Nausea & Vomiting 01/30/18 10:15 01/30/18 18:00 Pantoprazole (Protonix) 40 mg EVERY 12 HOURS IVP 01/29/18 09:15 02/28/18 09:14 01/30/18 09:48 Piperacillin Sod/ Tazobactam Sod 3.375 gm/Dextrose 110 ml @ 27.5 mls/hr EVERY 8 HOURS IVPB 01/29/18 14:00 02/05/18 13:59 01/30/18 06:35 Sodium Chloride 1,000 ml @ 10 mls/hr Q24H IVLG 01/30/18 10:13 01/30/18 12:12 01/30/18 11:13 Vancomycin HCl (Vanco rx to dose) 1 ea DAILY PRN MISC PER RX PROTOCOL 01/29/18 12:00 02/28/18 11:59 Vancomycin HCl 1 gm/Dextrose 275 ml @ 183.708 mls/hr Q24H IVPB 01/29/18 17:00 02/03/18 16:59 01/29/18 18:02 Vitamin D (Vitamin D) 1,000 intlu DAILY ORAL 01/30/18 09:00 03/01/18 08:59 Assessment/Plan Assessment/Plan Abx: IV Vancomcyn 01/29- Zosyn 01/29- Ceftriaxone x1 01/28 Assessment: Leukocytosis- r/o bacteremia, uti- ?reactive component from GIB -CXR: no acute process -CT abd/p wo: Evidence of constipation and likely rectal fecal impaction. No acute process otherwise. Colonic diverticulosis. Cholelithiasis. Multiple renal lesions of indeterminate attenuation. Most likely proteinaceous cysts, given evidence of multiple bilateral renal cysts and absence of solid lesions on prior sonogram of 07/29/2016. Nonetheless, repeat sonography is recommended. Evidence of bladder wall thickening, may indicate cystitis or chronic bladder outlet obstruction. Cardiomegaly. Small anterior wall pericardial thickening versus fluid. Nonspecific diffuse left adrenal enlargement. -Bcx 01/28 NTD -u/a wbc 5-10, nit neg, leuk +1; ucx p -influenza sc p Fever prior to admission, none here HEATH on? CKD hx of proteus bacteremia/pyelonephritis 07/2016 HTN HLD CVA w/ residual L hemiparesi former smoker seizure disorder expressive aphasia, bedbound [place] resident Plan: -Continue empiric Vanco and Zosyn #2 pending cultures -if febrile, worsening WBC will add fungal coverage -repeat 2 sets of Bcx -Cdiff -for EGD today -f/u cx -Monitor CBC/BMP, temperatures Thank you for this consultation. Will continue to follow along with you. Discussed with Chloe Osuna M.D. Jan 30, 2018 11:53
[2018-01-30 12:00] VITALS: BP 105/66
--- NOTE | 2018-01-30 14:26 | GI Progress Note ---
Assessment/Plan Problems: (1) Coffee ground emesis ICD Codes: K92.0 - Hematemesis SNOMED: 95185539, [id number] (2) Anemia ICD Codes: D64.9 - Anemia, unspecified SNOMED: 249237160 Status: stable Status Narrative Discussed with Dr. Hicks. Assessment/Plan OB stool negative stable H&H cancelled EGD due to elevated white count >> will consider if necessary ST evaluation adv diet per ST eval monitor H&H, prn transfusions bowel regime ppi fu labs Subjective Subjective limited Objective Last 24 Hour Vital Signs Date Time Temp Pulse Resp B/P (MAP) Pulse Ox O2 Delivery O2 Flow Rate FiO2 01/30/18 12:00 89 01/30/18 12:00 98.1 88 20 105/66 99 Room Air 98.1 01/30/18 08:00 93 01/30/18 08:00 98.2 84 20 115/55 95 Room Air 98.2 01/30/18 06:00 103/58 01/30/18 04:00 97.0 95 21 99/50 99 Room Air 97.0 01/30/18 04:00 99 01/30/18 00:20 100/60 01/30/18 00:00 97.2 98 20 105/60 98 97.2 01/30/18 00:00 100 01/29/18 21:23 111 120/76 01/29/18 20:00 97.7 111 22 120/76 100 Room Air 97.7 01/29/18 20:00 118 01/29/18 19:12 114/82 01/29/18 16:00 97.8 110 20 114/82 97 Room Air 97.8 01/29/18 16:00 92 Intake and Output 01/29/18 01/30/18 19:00 07:00 Intake Total 380 ml 113.0 ml Balance 380 ml 113.0 ml Intake Oral 380 ml IV Total 113.0 ml # Voids 2 1 # Bowel Movements 1 Laboratory Tests Test 01/29/18 16:00 01/29/18 21:27 01/30/18 05:10 Stool Occult Blood Negative (NEGATIVE) White Blood Count 24.4 K/UL (4.8-10.8) #*H 28.4 K/UL (4.8-10.8) *H Red Blood Count 3.23 M/UL (4.70-6.10) L 3.31 M/UL (4.70-6.10) L Hemoglobin 10.2 G/DL (14.2-18.0) L 10.6 G/DL (14.2-18.0) L Hematocrit 30.5 % (42.0-52.0) L 31.1 % (42.0-52.0) L Mean Corpuscular Volume 95 FL (80-99) 94 FL (80-99) Mean Corpuscular Hemoglobin 31.5 PG (27.0-31.0) H 31.9 PG (27.0-31.0) H Mean Corpuscular Hemoglobin Concent 33.3 G/DL (32.0-36.0) 34.0 G/DL (32.0-36.0) Red Cell Distribution Width 13.3 % (11.6-14.8) 13.4 % (11.6-14.8) Platelet Count 164 K/UL (150-450) 168 K/UL (150-450) Mean Platelet Volume 7.4 FL (6.5-10.1) 8.7 FL (6.5-10.1) Neutrophils (%) (Auto) % (45.0-75.0) % (45.0-75.0) Lymphocytes (%) (Auto) % (20.0-45.0) % (20.0-45.0) Monocytes (%) (Auto) % (1.0-10.0) % (1.0-10.0) Eosinophils (%) (Auto) % (0.0-3.0) % (0.0-3.0) Basophils (%) (Auto) % (0.0-2.0) % (0.0-2.0) Differential Total Cells Counted 100 100 Neutrophils % (Manual) 88 % (45-75) H 76 % (45-75) H Lymphocytes % (Manual) 7 % (20-45) L 8 % (20-45) L Monocytes % (Manual) 5 % (1-10) 9 % (1-10) Eosinophils % (Manual) 0 % (0-3) 0 % (0-3) Basophils % (Manual) 0 % (0-2) 0 % (0-2) Band Neutrophils 0 % (0-8) 7 % (0-8) Platelet Estimate Adequate Adequate Platelet Morphology Normal Normal Hypochromasia 1+ Anisocytosis 1+ Reticulocyte Count 1.0 % (0.0-2.0) Prothrombin Time 13.1 SEC (9.30-11.50) H Prothromb Time International Ratio 1.2 (0.9-1.1) H Activated Partial Thromboplast Time 32 SEC (23-33) Sodium Level 152 MMOL/L (136-145) H Potassium Level 3.8 MMOL/L (3.5-5.1) Chloride Level 115 MMOL/L (98-107) H Carbon Dioxide Level 24 MMOL/L (21-32) Anion Gap 13 mmol/L (5-15) Blood Urea Nitrogen 41 mg/dL (7-18) H Creatinine 3.1 MG/DL (0.55-1.30) H Estimat Glomerular Filtration Rate mL/min (>60) Glucose Level 83 MG/DL (74-106) Calcium Level 9.6 MG/DL (8.5-10.1) Phosphorus Level 3.8 MG/DL (2.5-4.9) Magnesium Level 1.8 MG/DL (1.8-2.4) Iron Level 8 ug/dL (50-175) L Total Iron Binding Capacity 213 ug/dL (250-450) L Percent Iron Saturation 4 % (15-50) L Unsaturated Iron Binding 205 ug/dL (112-346) Ferritin 111 NG/ML (8-388) Vitamin B12 Level 898 PG/ML (193-986) Folate 4.9 NG/ML (8.6-58.9) L Thyroid Stimulating Hormone (TSH) 0.667 uiU/mL (0.358-3.740) Free Thyroxine 1.24 NG/DL (0.76-1.46) Height (Feet): 5 Height (Inches): 6.00 Weight (Pounds): 160 General Appearance: no apparent distress, thin Cardiovascular: normal rate Respiratory/Chest: no respiratory distress Abdominal Exam: normal bowel sounds, non tender, soft Extremities: non-tender Patricia Lin N.P. Jan 30, 2018 14:26
--- NOTE | 2018-01-30 17:13 | Consultation ---
Consult Note Consult Note asked to eval for worsening renal failure 72-year-old male, history of CVA, with paresis, bedbound, brought in by [facility] for vomiting, coffee-ground emesis, and fever. Patient with normal blood pressure. Patient was given Tylenol at 5 PM prior to arrival. He had a MAXIMUM TEMPERATURE of 102.4 per medical chart. Patient is awake alert oriented 2, however very poor historian. States that he vomited "a little", denies any black or bloody stool. Denies any current pain right now. Hx Hypertension: Yes Hx Cerebrovascular Accident: Yes - hemiplegia, hemiparesis left side Hx Seizures: Yes Hx Epilepsy: Yes Hx Aphasia: Yes examined data reviewed Assessment/Plan acute on chronic renal failure- Cr 2.2 to 3.1 others; 1. Hematemesis. 2. Probable upper gastrointestinal hemorrhage. 3. Hypertension. 4. Hypercholesterolemia. 5. Seizure disorder. 6. Cerebrovascular disease. 7. Left hemiplegia. 8. Hypercholesterolemia. 9. Expressive aphasia. Plan: Adjust BP meds- Flomax- Kidney CRISTIANO Hydrate- monitor renal parammeters Avoid nephrotoxics JIGNESH MURCIA Jan 30, 2018 17:13
[2018-01-30] MEDS: Vancomycin 1 GM in D5W 275 ML IVPB SCH (17:36)
[2018-01-30] MEDS ORDERED: Tamsulosin 0.4mg cap ORAL ONE (18:00)
[2018-01-30 20:00] VITALS: BP 120/79
[2018-01-30] MEDS: Tamsulosin 0.4mg cap ORAL SCH (21:40)
[2018-01-30] MEDS: Iron Sucrose 100 MG in NS 110 ML IV SCH (21:40)
[2018-01-30] MEDS: HydrALAZINE 25mg tab ORAL SCH (22:00)
[2018-01-31] VITALS: BP 105/65
[2018-01-31 04:00] VITALS: BP 124/77
[2018-01-31] MEDS: D5W w/KCl 20mEq 1,000 ML IV SCH ×2 (05:11→15:32)
[2018-01-31] MEDS: HydrALAZINE 25mg tab ORAL SCH (06:30)
[2018-01-31 08:34] LABS: INR 1.1 (0.9-1.1)
[2018-01-31 08:38] LABS: HEMATOCRIT 28.8 % (42.0-52.0); HEMOGLOBIN 9.6 G/DL (14.2-18.0); MEAN CORPUSCULAR VOLUME 95 FL (80-99); PLATELET COUNT 146 K/UL (150-450); RED BLOOD COUNT 3.05 M/UL (4.70-6.10); RED CELL DISTRIBUTION WIDTH 13.5 % (11.6-14.8)
[2018-01-31 08:40] VITALS: BP 108/75
[2018-01-31 08:46] LABS: WHITE BLOOD COUNT 23.7 K/UL (4.8-10.8)
[2018-01-31 08:55] LABS: ANION GAP 12 mmol/L (5-15); BLOOD UREA NITROGEN 46 mg/dL (7-18); CALCIUM 9.2 MG/DL (8.5-10.1); CARBON DIOXIDE 24 MMOL/L (21-32); CHLORIDE 113 MMOL/L (98-107); CHOLESTEROL 94 MG/DL (< 200); CREATININE 2.9 MG/DL (0.55-1.30); HDL CHOLESTEROL 35 MG/DL (40-60); POTASSIUM 3.5 MMOL/L (3.5-5.1); SODIUM 149 MMOL/L (136-145); TRIGLYCERIDES 58 MG/DL (30-150)
[2018-01-31 08:57] LABS: ALANINE AMINOTRANSFERASE 94 U/L (12-78); ALBUMIN 2.8 G/DL (3.4-5.0); ALKALINE PHOSPHATASE 101 U/L (46-116); ASPARTATE AMINO TRANSFERASE 69 U/L (15-37); BILIRUBIN,DIRECT 0.2 MG/DL (0.0-0.3); BILIRUBIN,TOTAL 0.5 MG/DL (0.2-1.0); CREATINE KINASE 427 U/L (26-308); GAMMA GLUTAMYL TRANSPEPTIDASE 87 U/L (5-85); PHOSPHORUS 3.1 MG/DL (2.5-4.9)
[2018-01-31] MEDS: Labetalol 200mg tab ORAL SCH ×2 (09:00→22:34)
[2018-01-31] MEDS: Piperacillin/Tazobactam 3.375 GM in D5W 110 ML IVPB SCH (09:08)
[2018-01-31] MEDS: Pantoprazole Inj IVP SCH ×2 (09:08→22:31)
--- NOTE | 2018-01-31 09:19 | Diagnostic Imaging Report ---
Indication: Abnormal renal function tests Technique: Grayscale and duplex images of the kidneys, retroperitoneum, and bladder were obtained. Comparison: Reference made to abdomen and pelvis CT 01/28/2018. Comparison also to prior ultrasound of the kidneys dated 07/29/2016 Findings: Right kidney measures 11.2 cm in length. Left kidney measures 10.4 cm in length. Both kidneys demonstrate normal echogenicity. No hydronephrosis. 6 kidneys demonstrate bilateral cysts. Some of these demonstrate low level internal echoes, probably indicating proteinaceous debris accounting for the higher density on CT. The largest in the left upper pole measures 3.6 cm long axis dimension. The largest on the right measures 2.3 cm No solid masses are demonstrated. Echogenic focus with shadowing in the lower pole of the right renal sinus is probably artifactual, as no calcification in this area is seen on CT. Normal inferior vena cava. Bladder is mildly distended, volume 250 mL, otherwise normal. When compared to the prior study, cysts on the left appears slightly more abundant. Impression: Bilateral renal lesions demonstrated on recent CT scan demonstrated to be benign simple cysts. No solid lesion demonstrated. Negative for hydronephrosis.
--- NOTE | 2018-01-31 10:11 | Nephrology Progress Note ---
Assessment/Plan Problem List: (1) Acute renal failure (2) Anemia (3) UTI (urinary tract infection) Assessment acute on chronic renal failure- Cr 2.2 to 3.1 down to 2.9 others; 1. Hematemesis. 2. Probable upper gastrointestinal hemorrhage. 3. Hypertension. 4. Hypercholesterolemia. 5. Seizure disorder. 6. Cerebrovascular disease. 7. Left hemiplegia. 8. Hypercholesterolemia. 9. Expressive aphasia. Plan Plan: Adjust BP meds- Flomax- Kidney CRISTIANO Hydrate- monitor renal parammeters Avoid nephrotoxics Subjective ROS Limited/Unobtainable: No Constitutional: Reports: malaise Objective Objective Last 24 Hour Vital Signs Date Time Temp Pulse Resp B/P (MAP) Pulse Ox O2 Delivery O2 Flow Rate FiO2 01/31/18 09:00 89 108/75 01/31/18 09:00 89 108/75 01/31/18 08:40 97.7 89 21 108/75 98 Room Air 97.7 01/31/18 06:30 124/77 01/31/18 04:18 87 01/31/18 04:00 98.1 93 20 124/77 97 Room Air 98.1 01/31/18 00:00 98.2 78 20 105/65 95 Room Air 98.2 01/31/18 00:00 73 01/30/18 22:00 105/65 01/30/18 21:40 99 120/79 01/30/18 20:00 79 01/30/18 20:00 98.4 99 20 120/79 96 Room Air 98.4 01/30/18 16:00 79 01/30/18 12:00 89 01/30/18 12:00 98.1 88 20 105/66 99 Room Air 98.1 Intake and Output 01/30/18 01/31/18 19:00 07:00 Intake Total 1263.708 ml 1623.708 ml Balance 1263.708 ml 1623.708 ml Intake Oral 280 ml IV Total 983.708 ml 1623.708 ml # Voids 3 # Bowel Movements 2 Laboratory Tests 01/31/18 07:30: White Blood Count 23.7*H, Red Blood Count 3.05L, Hemoglobin 9.6L, Hematocrit 28.8L, Mean Corpuscular Volume 95, Mean Corpuscular Hemoglobin 31.6H, Mean Corpuscular Hemoglobin Concent 33.4, Red Cell Distribution Width 13.5, Platelet Count 146L, Mean Platelet Volume 8.8, Neutrophils (%) (Auto) , Lymphocytes (%) ( Auto) , Monocytes (%) (Auto) , Eosinophils (%) (Auto) , Basophils (%) (Auto) , Differential Total Cells Counted 100, Neutrophils % (Manual) 75, Lymphocytes % ( Manual) 14L, Monocytes % (Manual) 2, Eosinophils % (Manual) 3, Basophils % ( Manual) 0, Band Neutrophils 6, Platelet Estimate Adequate, Platelet Morphology Normal, Hypochromasia 1+, Prothrombin Time 11.4, Prothromb Time International Ratio 1.1, Activated Partial Thromboplast Time 34H, Sodium Level 149H, Potassium Level 3.5, Chloride Level 113H, Carbon Dioxide Level 24, Anion Gap 12 , Blood Urea Nitrogen 46H, Creatinine 2.9H, Estimat Glomerular Filtration Rate , Glucose Level 87, Hemoglobin A1c 6.2H, Uric Acid 8.5H, Calcium Level 9.2, Phosphorus Level 3.1, Magnesium Level 1.9, Total Bilirubin 0.5, Direct Bilirubin 0.2, Gamma Glutamyl Transpeptidase 87H, Aspartate Amino Transf (AST/ SGOT) 69H, Alanine Aminotransferase (ALT/SGPT) 94H, Alkaline Phosphatase 101, Total Creatine Kinase 427H, Pro-B-Type Natriuretic Peptide 2248H, Total Protein 6.8, Albumin 2.8L, Triglycerides Level 58, Cholesterol Level 94, LDL Cholesterol 47, HDL Cholesterol 35L, Cholesterol/HDL Ratio 2.7L, Thyroid Stimulating Hormone (TSH) 1.367 Height (Feet): 5 Height (Inches): 6.00 Weight (Pounds): 160 General Appearance: no apparent distress Objective no change JIGNESH MURCIA Jan 31, 2018 10:11
--- NOTE | 2018-01-31 10:58 | GI Progress Note ---
Assessment/Plan Problems: (1) Coffee ground emesis ICD Codes: K92.0 - Hematemesis SNOMED: 25870286, 340282086 (2) Anemia ICD Codes: D64.9 - Anemia, unspecified SNOMED: 971666434 Status: stable Status Narrative Discussed with Dr. Hicks. Assessment/Plan OB stool negative stable H&H rising LFT cancelled EGD due to elevated white count >> will consider if necessary ST evaluation adv diet per ST eval monitor H&H, prn transfusions bowel regime ppi fu labs, LFTs Subjective Subjective limited Objective Last 24 Hour Vital Signs Date Time Temp Pulse Resp B/P (MAP) Pulse Ox O2 Delivery O2 Flow Rate FiO2 01/31/18 09:00 89 108/75 01/31/18 09:00 89 108/75 01/31/18 08:40 97.7 89 21 108/75 98 Room Air 97.7 01/31/18 06:30 124/77 01/31/18 04:18 87 01/31/18 04:00 98.1 93 20 124/77 97 Room Air 98.1 01/31/18 00:00 98.2 78 20 105/65 95 Room Air 98.2 01/31/18 00:00 73 01/30/18 22:00 105/65 01/30/18 21:40 99 120/79 01/30/18 20:00 79 01/30/18 20:00 98.4 99 20 120/79 96 Room Air 98.4 01/30/18 16:00 79 01/30/18 12:00 89 01/30/18 12:00 98.1 88 20 105/66 99 Room Air 98.1 Intake and Output 01/30/18 01/31/18 19:00 07:00 Intake Total 1263.708 ml 1623.708 ml Balance 1263.708 ml 1623.708 ml Intake Oral 280 ml IV Total 983.708 ml 1623.708 ml # Voids 3 # Bowel Movements 2 Laboratory Tests Test 01/31/18 07:30 White Blood Count 23.7 K/UL (4.8-10.8) *H Red Blood Count 3.05 M/UL (4.70-6.10) L Hemoglobin 9.6 G/DL (14.2-18.0) L Hematocrit 28.8 % (42.0-52.0) L Mean Corpuscular Volume 95 FL (80-99) Mean Corpuscular Hemoglobin 31.6 PG (27.0-31.0) H Mean Corpuscular Hemoglobin Concent 33.4 G/DL (32.0-36.0) Red Cell Distribution Width 13.5 % (11.6-14.8) Platelet Count 146 K/UL (150-450) L Mean Platelet Volume 8.8 FL (6.5-10.1) Neutrophils (%) (Auto) % (45.0-75.0) Lymphocytes (%) (Auto) % (20.0-45.0) Monocytes (%) (Auto) % (1.0-10.0) Eosinophils (%) (Auto) % (0.0-3.0) Basophils (%) (Auto) % (0.0-2.0) Differential Total Cells Counted 100 Neutrophils % (Manual) 75 % (45-75) Lymphocytes % (Manual) 14 % (20-45) L Monocytes % (Manual) 2 % (1-10) Eosinophils % (Manual) 3 % (0-3) Basophils % (Manual) 0 % (0-2) Band Neutrophils 6 % (0-8) Platelet Estimate Adequate Platelet Morphology Normal Hypochromasia 1+ Prothrombin Time 11.4 SEC (9.30-11.50) Prothromb Time International Ratio 1.1 (0.9-1.1) Activated Partial Thromboplast Time 34 SEC (23-33) H Sodium Level 149 MMOL/L (136-145) H Potassium Level 3.5 MMOL/L (3.5-5.1) Chloride Level 113 MMOL/L (98-107) H Carbon Dioxide Level 24 MMOL/L (21-32) Anion Gap 12 mmol/L (5-15) Blood Urea Nitrogen 46 mg/dL (7-18) H Creatinine 2.9 MG/DL (0.55-1.30) H Estimat Glomerular Filtration Rate mL/min (>60) Glucose Level 87 MG/DL (74-106) Hemoglobin A1c 6.2 % (4.3-6.0) H Uric Acid 8.5 MG/DL (2.6-7.2) H Calcium Level 9.2 MG/DL (8.5-10.1) Phosphorus Level 3.1 MG/DL (2.5-4.9) Magnesium Level 1.9 MG/DL (1.8-2.4) Total Bilirubin 0.5 MG/DL (0.2-1.0) Direct Bilirubin 0.2 MG/DL (0.0-0.3) Gamma Glutamyl Transpeptidase 87 U/L (5-85) H Aspartate Amino Transf (AST/SGOT) 69 U/L (15-37) H Alanine Aminotransferase (ALT/SGPT) 94 U/L (12-78) H Alkaline Phosphatase 101 U/L (46-116) Total Creatine Kinase 427 U/L (26-308) H Pro-B-Type Natriuretic Peptide 2248 pg/mL (0-125) H Total Protein 6.8 G/DL (6.4-8.2) Albumin 2.8 G/DL (3.4-5.0) L Triglycerides Level 58 MG/DL (30-150) Cholesterol Level 94 MG/DL (< 200) LDL Cholesterol 47 mg/dL (<100) HDL Cholesterol 35 MG/DL (40-60) L Cholesterol/HDL Ratio 2.7 (3.3-4.4) L Thyroid Stimulating Hormone (TSH) 1.367 uiU/mL (0.358-3.740) Microbiology Date/Time Source Procedure Growth Status 01/30/18 12:00 Stool Clostridium difficile Toxin Assay - Final Complete Height (Feet): 5 Height (Inches): 6.00 Weight (Pounds): 160 General Appearance: alert Cardiovascular: normal rate Respiratory/Chest: normal breath sounds Abdominal Exam: soft Genitourinary/Rectal: normal rectal exam Extremities: non-tender Patricia Lin N.P. Jan 31, 2018 10:58
--- NOTE | 2018-01-31 11:39 | Internal Med Progress Note ---
Subjective Date of Service: Jan 31, 2018 Physician Name Jonathan Huang Attending Physician Nilesh Rodriguez MD Current Medications Medications (Trade) Dose Ordered Sig/Thien Route PRN Reason Start Time Stop Time Status Last Admin Dose Admin Acetaminophen (Tylenol) 650 mg Q4H PRN ORAL Mild Pain/Temp > 100.5 01/29/18 11:45 02/28/18 11:44 Albumin Human 500 ml @ 0 mls/hr Q0M ONCE IV 01/31/18 11:30 01/31/18 11:31 Amlodipine Besylate (Norvasc) 2.5 mg DAILY ORAL 01/31/18 09:00 03/02/18 08:59 Atorvastatin Calcium (Lipitor) 10 mg BEDTIME ORAL 01/29/18 21:00 02/28/18 20:59 01/30/18 21:39 Dextrose 500 ml @ 500 mls/hr ONCE ONCE IV 01/31/18 11:00 01/31/18 11:59 Dextrose/ Electrolytes 1,000 ml @ 100 mls/hr Q10H IV 01/30/18 09:00 03/01/18 08:59 01/31/18 05:11 Folic Acid (Folate) 2 mg DAILY ORAL 01/31/18 11:00 03/02/18 10:59 Hydralazine HCl (Apresoline) 10 mg Q8HR ORAL 01/31/18 14:00 03/02/18 13:59 Iron Sucrose 100 mg/Sodium Chloride 115 ml @ 230 mls/hr BEDTIME IV 01/30/18 21:00 02/03/18 21:29 01/30/18 21:40 Labetalol HCl (Normodyne) 200 mg Q12HR ORAL 01/29/18 21:00 02/28/18 20:59 01/30/18 21:40 Multivitamins (Multivitamins) 1 tab DAILY ORAL 01/30/18 09:00 03/01/18 08:59 01/31/18 09:08 Pantoprazole (Protonix) 40 mg EVERY 12 HOURS IVP 01/29/18 09:15 02/28/18 09:14 01/31/18 09:08 Piperacillin Sod/ Tazobactam Sod 3.375 gm/Dextrose 110 ml @ 27.5 mls/hr EVERY 12 HOURS IVPB 01/30/18 21:00 02/06/18 20:59 01/31/18 09:08 Tamsulosin HCl (Flomax) 0.4 mg BEDTIME ORAL 01/30/18 21:00 03/01/18 20:59 01/30/18 21:40 Vancomycin HCl (Vanco rx to dose) 1 ea DAILY PRN MISC PER RX PROTOCOL 01/29/18 12:00 02/28/18 11:59 Vancomycin HCl 1 gm/Dextrose 275 ml @ 183.708 mls/hr Q24H IVPB 01/29/18 17:00 02/03/18 16:59 01/30/18 17:36 Allergies: Coded Allergies: No Known Allergies (Unverified , 07/28/16) ROS Limited/Unobtainable: No Constitutional: Reports: no symptoms HEENT: Reports: no symptoms Respiratory: Reports: no symptoms Gastrointestinal/Abdominal: Reports: nausea, vomiting, other - hematemesis Genitourinary: Reports: no symptoms Neurologic/Psychiatric: Reports: no symptoms Subjective 72 YO M admitted with hematemesis. EGD 01/30/18 cancelled due to leukocytosis. Cover for Int Med - Dr Rodriguez. Objective Last Vital Signs Date Time Temp Pulse Resp B/P (MAP) Pulse Ox O2 Delivery O2 Flow Rate FiO2 01/31/18 09:00 89 108/75 01/31/18 08:40 97.7 21 98 Room Air 97.7 General Appearance: WD/WN, no apparent distress, alert EENT: PERRL/EOMI, normal ENT inspection, TMs normal Neck: non-tender, normal alignment, supple Cardiovascular: normal peripheral pulses, normal rate, regular rhythm, no gallop/murmur, no JVD Respiratory/Chest: chest wall non-tender, lungs clear, normal breath sounds, no respiratory distress, no accessory muscle use Abdomen: normal bowel sounds, distended, guarding, tender Extremities: normal range of motion, non-tender Neurologic: manager diesel II-XII grossly normal, no motor/sensory deficits Skin: normal pigmentation, warm/dry Laboratory Tests Test 01/31/18 07:30 White Blood Count 23.7 K/UL (4.8-10.8) *H Red Blood Count 3.05 M/UL (4.70-6.10) L Hemoglobin 9.6 G/DL (14.2-18.0) L Hematocrit 28.8 % (42.0-52.0) L Mean Corpuscular Volume 95 FL (80-99) Mean Corpuscular Hemoglobin 31.6 PG (27.0-31.0) H Mean Corpuscular Hemoglobin Concent 33.4 G/DL (32.0-36.0) Red Cell Distribution Width 13.5 % (11.6-14.8) Platelet Count 146 K/UL (150-450) L Mean Platelet Volume 8.8 FL (6.5-10.1) Neutrophils (%) (Auto) % (45.0-75.0) Lymphocytes (%) (Auto) % (20.0-45.0) Monocytes (%) (Auto) % (1.0-10.0) Eosinophils (%) (Auto) % (0.0-3.0) Basophils (%) (Auto) % (0.0-2.0) Differential Total Cells Counted 100 Neutrophils % (Manual) 75 % (45-75) Lymphocytes % (Manual) 14 % (20-45) L Monocytes % (Manual) 2 % (1-10) Eosinophils % (Manual) 3 % (0-3) Basophils % (Manual) 0 % (0-2) Band Neutrophils 6 % (0-8) Platelet Estimate Adequate Platelet Morphology Normal Hypochromasia 1+ Prothrombin Time 11.4 SEC (9.30-11.50) Prothromb Time International Ratio 1.1 (0.9-1.1) Activated Partial Thromboplast Time 34 SEC (23-33) H Sodium Level 149 MMOL/L (136-145) H Potassium Level 3.5 MMOL/L (3.5-5.1) Chloride Level 113 MMOL/L (98-107) H Carbon Dioxide Level 24 MMOL/L (21-32) Anion Gap 12 mmol/L (5-15) Blood Urea Nitrogen 46 mg/dL (7-18) H Creatinine 2.9 MG/DL (0.55-1.30) H Estimat Glomerular Filtration Rate mL/min (>60) Glucose Level 87 MG/DL (74-106) Hemoglobin A1c 6.2 % (4.3-6.0) H Uric Acid 8.5 MG/DL (2.6-7.2) H Calcium Level 9.2 MG/DL (8.5-10.1) Phosphorus Level 3.1 MG/DL (2.5-4.9) Magnesium Level 1.9 MG/DL (1.8-2.4) Total Bilirubin 0.5 MG/DL (0.2-1.0) Direct Bilirubin 0.2 MG/DL (0.0-0.3) Gamma Glutamyl Transpeptidase 87 U/L (5-85) H Aspartate Amino Transf (AST/SGOT) 69 U/L (15-37) H Alanine Aminotransferase (ALT/SGPT) 94 U/L (12-78) H Alkaline Phosphatase 101 U/L (46-116) Total Creatine Kinase 427 U/L (26-308) H Pro-B-Type Natriuretic Peptide 2248 pg/mL (0-125) H Total Protein 6.8 G/DL (6.4-8.2) Albumin 2.8 G/DL (3.4-5.0) L Triglycerides Level 58 MG/DL (30-150) Cholesterol Level 94 MG/DL (< 200) LDL Cholesterol 47 mg/dL (<100) HDL Cholesterol 35 MG/DL (40-60) L Cholesterol/HDL Ratio 2.7 (3.3-4.4) L Thyroid Stimulating Hormone (TSH) 1.367 uiU/mL (0.358-3.740) Microbiology Date/Time Source Procedure Growth Status 01/28/18 21:50 Blood Blood Culture - Preliminary NO GROWTH AFTER 48 HOURS Resulted 01/28/18 21:35 Blood Blood Culture - Preliminary NO GROWTH AFTER 48 HOURS Resulted 01/30/18 10:00 Nasal Nares MRSA Culture - Final NO METHICILLIN RESISTANT STAPH AUREUS... Complete 01/28/18 22:00 Nasal Nares Influenza Types A,B Antigen (AUDREY) - Final Complete 01/30/18 12:00 Stool Clostridium difficile Toxin Assay - Final Complete 01/28/18 22:30 Urine,Clean Catch Urine Culture - Final Klebsiella Pneumoniae Complete 01/29/18 22:30 Rectum VRE Culture - Final NO VANCOMYCIN RESISTANT ENTEROCOCCUS ... Complete Intake and Output 01/30/18 01/31/18 19:00 07:00 Intake Total 1263.708 ml 1623.708 ml Balance 1263.708 ml 1623.708 ml Intake Oral 280 ml IV Total 983.708 ml 1623.708 ml # Voids 3 # Bowel Movements 2 Assessment/Plan Problem List: (1) Hematemesis Assessment & Plan: Endoscopy held 01/30/18 due to leukocytosis-see GI note. Continue protonix (2) Leukocytosis (3) Renal failure (4) HTN (hypertension) Assessment & Plan: Continue labetolol, norvasc and hydralazine (5) Hypercholesteremia (6) Seizure disorder Assessment & Plan: See neurology note (7) Cerebral vascular disease (8) Left hemiplegia Assessment & Plan: Physical therapy and occupational therapy (9) Expressive aphasia Status: not improved JONATHAN HUANG Jan 31, 2018 11:39
[2018-01-31 12:00] VITALS: BP 111/63
--- NOTE | 2018-01-31 12:08 | Infectious Diseases Prog Note ---
Assessment/Plan Assessment/Plan Abx: IV Vancomcyn 01/29- Zosyn 01/29- Ceftriaxone x1 01/28 Assessment: Leukocytosis- r/o bacteremia, uti- ?reactive component from GIB; improving -CXR: no acute process -CT abd/p wo: Evidence of constipation and likely rectal fecal impaction. No acute process otherwise. Colonic diverticulosis. Cholelithiasis. Multiple renal lesions of indeterminate attenuation. Most likely proteinaceous cysts, given evidence of multiple bilateral renal cysts and absence of solid lesions on prior sonogram of 07/29/2016. Nonetheless, repeat sonography is recommended. Evidence of bladder wall thickening, may indicate cystitis or chronic bladder outlet obstruction. Cardiomegaly. Small anterior wall pericardial thickening versus fluid. Nonspecific diffuse left adrenal enlargement. -Bcx 01/28 NTD -u/a wbc 5-10, nit neg, leuk +1; ucx >100K K.pna (R amp, Cipro; I Levo, otherwise S) -influenza sc neg -Cdiff neg Fever prior to admission, none here GIB HEATH on? CKD; improving -Renal US: Bilateral renal lesions demonstrated on recent CT scan demonstrated to be benign simple cysts. No solid lesion demonstrated. Negative for hydronephrosis. hx of proteus bacteremia/pyelonephritis 07/2016 HTN HLD CVA w/ residual L hemiparesis former smoker seizure disorder expressive aphasia, bedbound [facility] resident Plan: -switch empiric Vanco and Zosyn #3 to IV Ceftriaxone for suspected K.pna UTI -01/28 SP Ceftriaxone x1 -f/u repeat 2 sets of Bcx -Monitor CBC/BMP, temperatures -aspiration precautions -GI following Thank you for this consultation. Will continue to follow along with you. Discussed with RN. Subjective Allergies: Coded Allergies: No Known Allergies (Unverified , 07/28/16) Subjective afebrile leukocytosis improving Bcx NTD EGD cancelled Objective Vital Signs Last 24 Hour Vital Signs Date Time Temp Pulse Resp B/P (MAP) Pulse Ox O2 Delivery O2 Flow Rate FiO2 01/31/18 09:00 89 108/75 01/31/18 09:00 89 108/75 01/31/18 08:40 97.7 89 21 108/75 98 Room Air 97.7 01/31/18 07:56 89 01/31/18 06:30 124/77 01/31/18 04:18 87 01/31/18 04:00 98.1 93 20 124/77 97 Room Air 98.1 01/31/18 00:00 98.2 78 20 105/65 95 Room Air 98.2 01/31/18 00:00 73 01/30/18 22:00 105/65 01/30/18 21:40 99 120/79 01/30/18 20:00 79 01/30/18 20:00 98.4 99 20 120/79 96 Room Air 98.4 01/30/18 16:00 79 01/30/18 12:00 89 01/30/18 12:00 98.1 88 20 105/66 99 Room Air 98.1 Height (Feet): 5 Height (Inches): 6.00 Weight (Pounds): 160 Objective GENERAL: The patient is well-developed and well-nourished male, in no apparent distress. HEENT: Eyes, pupils are equal and responsive to light and accommodation. Extraocular movements are intact. NECK: Supple without lymphadenopathy. CHEST: Lungs are clear to auscultation bilaterally without wheezes or rales. CARDIOVASCULAR: Regular rate. S1 and S2 are normal without murmurs, rubs, or gallops. ABDOMEN: Soft, nontender, and nondistended. Positive bowel sounds. No evidence of hepatosplenomegaly. Currently, no rebound or guarding noted. EXTREMITIES: Negative for clubbing, cyanosis, or edema. Microbiology Date/Time Source Procedure Growth Status 01/28/18 21:50 Blood Blood Culture - Preliminary NO GROWTH AFTER 48 HOURS Resulted 01/28/18 21:35 Blood Blood Culture - Preliminary NO GROWTH AFTER 48 HOURS Resulted 01/30/18 10:00 Nasal Nares MRSA Culture - Final NO METHICILLIN RESISTANT STAPH AUREUS... Complete 01/28/18 22:00 Nasal Nares Influenza Types A,B Antigen (AUDREY) - Final Complete 01/30/18 12:00 Stool Clostridium difficile Toxin Assay - Final Complete 01/28/18 22:30 Urine,Clean Catch Urine Culture - Final Klebsiella Pneumoniae Complete 01/29/18 22:30 Rectum VRE Culture - Final NO VANCOMYCIN RESISTANT ENTEROCOCCUS ... Complete Laboratory Tests Test 01/31/18 07:30 White Blood Count 23.7 K/UL (4.8-10.8) *H Red Blood Count 3.05 M/UL (4.70-6.10) L Hemoglobin 9.6 G/DL (14.2-18.0) L Hematocrit 28.8 % (42.0-52.0) L Mean Corpuscular Volume 95 FL (80-99) Mean Corpuscular Hemoglobin 31.6 PG (27.0-31.0) H Mean Corpuscular Hemoglobin Concent 33.4 G/DL (32.0-36.0) Red Cell Distribution Width 13.5 % (11.6-14.8) Platelet Count 146 K/UL (150-450) L Mean Platelet Volume 8.8 FL (6.5-10.1) Neutrophils (%) (Auto) % (45.0-75.0) Lymphocytes (%) (Auto) % (20.0-45.0) Monocytes (%) (Auto) % (1.0-10.0) Eosinophils (%) (Auto) % (0.0-3.0) Basophils (%) (Auto) % (0.0-2.0) Differential Total Cells Counted 100 Neutrophils % (Manual) 75 % (45-75) Lymphocytes % (Manual) 14 % (20-45) L Monocytes % (Manual) 2 % (1-10) Eosinophils % (Manual) 3 % (0-3) Basophils % (Manual) 0 % (0-2) Band Neutrophils 6 % (0-8) Platelet Estimate Adequate Platelet Morphology Normal Hypochromasia 1+ Prothrombin Time 11.4 SEC (9.30-11.50) Prothromb Time International Ratio 1.1 (0.9-1.1) Activated Partial Thromboplast Time 34 SEC (23-33) H Sodium Level 149 MMOL/L (136-145) H Potassium Level 3.5 MMOL/L (3.5-5.1) Chloride Level 113 MMOL/L (98-107) H Carbon Dioxide Level 24 MMOL/L (21-32) Anion Gap 12 mmol/L (5-15) Blood Urea Nitrogen 46 mg/dL (7-18) H Creatinine 2.9 MG/DL (0.55-1.30) H Estimat Glomerular Filtration Rate mL/min (>60) Glucose Level 87 MG/DL (74-106) Hemoglobin A1c 6.2 % (4.3-6.0) H Uric Acid 8.5 MG/DL (2.6-7.2) H Calcium Level 9.2 MG/DL (8.5-10.1) Phosphorus Level 3.1 MG/DL (2.5-4.9) Magnesium Level 1.9 MG/DL (1.8-2.4) Total Bilirubin 0.5 MG/DL (0.2-1.0) Direct Bilirubin 0.2 MG/DL (0.0-0.3) Gamma Glutamyl Transpeptidase 87 U/L (5-85) H Aspartate Amino Transf (AST/SGOT) 69 U/L (15-37) H Alanine Aminotransferase (ALT/SGPT) 94 U/L (12-78) H Alkaline Phosphatase 101 U/L (46-116) Total Creatine Kinase 427 U/L (26-308) H Pro-B-Type Natriuretic Peptide 2248 pg/mL (0-125) H Total Protein 6.8 G/DL (6.4-8.2) Albumin 2.8 G/DL (3.4-5.0) L Triglycerides Level 58 MG/DL (30-150) Cholesterol Level 94 MG/DL (< 200) LDL Cholesterol 47 mg/dL (<100) HDL Cholesterol 35 MG/DL (40-60) L Cholesterol/HDL Ratio 2.7 (3.3-4.4) L Thyroid Stimulating Hormone (TSH) 1.367 uiU/mL (0.358-3.740) Current Medications Medications (Trade) Dose Ordered Sig/Thien Route PRN Reason Start Time Stop Time Status Last Admin Dose Admin Acetaminophen (Tylenol) 650 mg Q4H PRN ORAL Mild Pain/Temp > 100.5 01/29/18 11:45 02/28/18 11:44 Amlodipine Besylate (Norvasc) 2.5 mg DAILY ORAL 01/31/18 09:00 03/02/18 08:59 Atorvastatin Calcium (Lipitor) 10 mg BEDTIME ORAL 01/29/18 21:00 02/28/18 20:59 01/30/18 21:39 Dextrose 500 ml @ 500 mls/hr ONCE ONCE IV 01/31/18 11:00 01/31/18 11:59 Dextrose/ Electrolytes 1,000 ml @ 100 mls/hr Q10H IV 01/30/18 09:00 03/01/18 08:59 01/31/18 05:11 Folic Acid (Folate) 2 mg DAILY ORAL 01/31/18 11:00 03/02/18 10:59 01/31/18 11:51 Hydralazine HCl (Apresoline) 10 mg Q8HR ORAL 01/31/18 14:00 03/02/18 13:59 Iron Sucrose 100 mg/Sodium Chloride 115 ml @ 230 mls/hr BEDTIME IV 01/30/18 21:00 02/03/18 21:29 01/30/18 21:40 Labetalol HCl (Normodyne) 200 mg Q12HR ORAL 01/29/18 21:00 02/28/18 20:59 01/30/18 21:40 Multivitamins (Multivitamins) 1 tab DAILY ORAL 01/30/18 09:00 03/01/18 08:59 01/31/18 09:08 Pantoprazole (Protonix) 40 mg EVERY 12 HOURS IVP 01/29/18 09:15 02/28/18 09:14 01/31/18 09:08 Piperacillin Sod/ Tazobactam Sod 3.375 gm/Dextrose 110 ml @ 27.5 mls/hr EVERY 12 HOURS IVPB 01/30/18 21:00 02/06/18 20:59 01/31/18 09:08 Tamsulosin HCl (Flomax) 0.4 mg BEDTIME ORAL 01/30/18 21:00 03/01/18 20:59 01/30/18 21:40 Vancomycin HCl (Vanco rx to dose) 1 ea DAILY PRN MISC PER RX PROTOCOL 01/29/18 12:00 02/28/18 11:59 Vancomycin HCl 1 gm/Dextrose 275 ml @ 183.708 mls/hr Q24H IVPB 01/29/18 17:00 02/03/18 16:59 01/30/18 17:36 Chloe Bear M.D. Jan 31, 2018 12:08
[2018-01-31] MEDS: HydrALAZINE 10mg Tab ORAL SCH (15:32)
[2018-01-31 16:00] VITALS: BP 109/63
[2018-01-31 20:00] VITALS: BP 109/59
[2018-01-31] MEDS: Iron Sucrose 100 MG in NS 110 ML IV SCH (22:30)
[2018-01-31] MEDS: Tamsulosin 0.4mg cap ORAL SCH (22:31)
[2018-01-31] MEDS: cefTRIAXone 1 GM in D5W 110 ML IVPB SCH (22:38)
[2018-02-01] VITALS: BP 118/72
[2018-02-01] MEDS: HydrALAZINE 10mg Tab ORAL SCH ×4 (00:05→21:49)
[2018-02-01] MEDS: D5W w/KCl 20mEq 1,000 ML IV SCH ×3 (01:39→21:00)
[2018-02-01 04:00] VITALS: BP 125/84
[2018-02-01 08:00] VITALS: BP 111/78
[2018-02-01 08:42] LABS: BASOPHILS % (AUTO) 0.4 % (0.0-2.0); HEMOGLOBIN 9.3 G/DL (14.2-18.0); LYMPHOCYTES % (AUTO) 17.4 % (20.0-45.0); MEAN CORPUSCULAR VOLUME 94 FL (80-99); MONOCYTES % (AUTO) 3.6 % (1.0-10.0); NEUTROPHILS % (AUTO) 76.7 % (45.0-75.0); PLATELET COUNT 127 K/UL (150-450); RED BLOOD COUNT 2.88 M/UL (4.70-6.10); RED CELL DISTRIBUTION WIDTH 13.3 % (11.6-14.8); WHITE BLOOD COUNT 17.8 K/UL (4.8-10.8)
[2018-02-01 09:04] LABS: ALANINE AMINOTRANSFERASE 73 U/L (12-78); ALBUMIN 2.8 G/DL (3.4-5.0); ALBUMIN/GLOBULIN RATIO 0.8 (1.0-2.7); ALKALINE PHOSPHATASE 85 U/L (46-116); ANION GAP 8 mmol/L (5-15); ASPARTATE AMINO TRANSFERASE 41 U/L (15-37); BILIRUBIN,TOTAL 0.3 MG/DL (0.2-1.0); BLOOD UREA NITROGEN 41 mg/dL (7-18); CALCIUM 9.5 MG/DL (8.5-10.1); CARBON DIOXIDE 24 MMOL/L (21-32); CHLORIDE 110 MMOL/L (98-107); CREATININE 2.3 MG/DL (0.55-1.30); POTASSIUM 3.8 MMOL/L (3.5-5.1); SODIUM 142 MMOL/L (136-145)
[2018-02-01] MEDS: Labetalol 200mg tab ORAL SCH ×2 (09:16→21:49)
[2018-02-01] MEDS: Pantoprazole Inj IVP SCH ×2 (09:17→21:47)
--- NOTE | 2018-02-01 10:04 | GI Progress Note ---
Assessment/Plan Problems: (1) Coffee ground emesis ICD Codes: K92.0 - Hematemesis SNOMED: 40813500, [id number] (2) Anemia ICD Codes: D64.9 - Anemia, unspecified SNOMED: 272076803 Status: progressing Status Narrative Discussed with Dr. Hicks. Assessment/Plan OB stool negative stable H&H cancelled EGD due to elevated white count >> will consider if necessary ST evaluation adv diet per ST eval, tolerating monitor H&H, prn transfusions >> slight downtrend, will order additional OB stool bowel regime OT/PT evalulation ppi fu labs, LFTs Subjective Subjective feels better denies any complaints Objective Last 24 Hour Vital Signs Date Time Temp Pulse Resp B/P (MAP) Pulse Ox O2 Delivery O2 Flow Rate FiO2 02/01/18 09:16 73 127/77 02/01/18 09:16 73 127/77 02/01/18 07:03 125/84 02/01/18 04:00 97.0 82 20 125/84 96 Room Air 97.0 02/01/18 03:32 74 02/01/18 00:05 118/72 02/01/18 00:00 97.0 79 20 118/72 96 Room Air 97.0 01/31/18 23:44 70 01/31/18 22:34 74 120/75 01/31/18 20:00 98.1 82 20 109/59 96 Room Air 98.1 01/31/18 20:00 77 01/31/18 16:00 97.2 82 20 109/63 97 Room Air 97.2 01/31/18 15:32 111/63 01/31/18 15:30 77 01/31/18 12:00 97.8 75 21 111/63 95 Room Air 97.8 01/31/18 11:27 71 Intake and Output 01/31/18 02/01/18 19:00 07:00 Intake Total 1300 ml 1450 ml Balance 1300 ml 1450 ml Intake Oral 200 ml IV Total 1100 ml 1450 ml # Voids 1 Laboratory Tests Test 02/01/18 08:00 White Blood Count 17.8 K/UL (4.8-10.8) H Red Blood Count 2.88 M/UL (4.70-6.10) L Hemoglobin 9.3 G/DL (14.2-18.0) L Hematocrit 27.0 % (42.0-52.0) L Mean Corpuscular Volume 94 FL (80-99) Mean Corpuscular Hemoglobin 32.2 PG (27.0-31.0) H Mean Corpuscular Hemoglobin Concent 34.3 G/DL (32.0-36.0) Red Cell Distribution Width 13.3 % (11.6-14.8) Platelet Count 127 K/UL (150-450) L Mean Platelet Volume 8.1 FL (6.5-10.1) Neutrophils (%) (Auto) 76.7 % (45.0-75.0) H Lymphocytes (%) (Auto) 17.4 % (20.0-45.0) L Monocytes (%) (Auto) 3.6 % (1.0-10.0) Eosinophils (%) (Auto) 2.0 % (0.0-3.0) Basophils (%) (Auto) 0.4 % (0.0-2.0) Sodium Level 142 MMOL/L (136-145) Potassium Level 3.8 MMOL/L (3.5-5.1) Chloride Level 110 MMOL/L (98-107) H Carbon Dioxide Level 24 MMOL/L (21-32) Anion Gap 8 mmol/L (5-15) Blood Urea Nitrogen 41 mg/dL (7-18) H Creatinine 2.3 MG/DL (0.55-1.30) H Estimat Glomerular Filtration Rate mL/min (>60) Glucose Level 111 MG/DL (74-106) H Calcium Level 9.5 MG/DL (8.5-10.1) Total Bilirubin 0.3 MG/DL (0.2-1.0) Aspartate Amino Transf (AST/SGOT) 41 U/L (15-37) H Alanine Aminotransferase (ALT/SGPT) 73 U/L (12-78) Alkaline Phosphatase 85 U/L (46-116) Total Protein 6.5 G/DL (6.4-8.2) Albumin 2.8 G/DL (3.4-5.0) L Globulin 3.7 g/dL Albumin/Globulin Ratio 0.8 (1.0-2.7) L Height (Feet): 5 Height (Inches): 6.00 Weight (Pounds): 160 General Appearance: WD/WN, no apparent distress, alert Cardiovascular: normal rate Respiratory/Chest: normal breath sounds, no respiratory distress Abdominal Exam: normal bowel sounds, non tender, soft Extremities: normal range of motion, non-tender Patricia Lin N.P. Feb 01, 2018 10:04
--- NOTE | 2018-02-01 10:31 | Nephrology Progress Note ---
Assessment/Plan Problem List: (1) Acute renal failure (2) Anemia (3) UTI (urinary tract infection) Assessment acute on chronic renal failure- Cr 2.2 to 3.1 down to 2.9 now 2.3 others; 1. Hematemesis. 2. Probable upper gastrointestinal hemorrhage. 3. Hypertension. 4. Hypercholesterolemia. 5. Seizure disorder. 6. Cerebrovascular disease. 7. Left hemiplegia. 8. Hypercholesterolemia. 9. Expressive aphasia. Plan Plan: Adjust BP meds- Flomax- Kidney CRISTIANO Hydrate- monitor renal parammeters Avoid nephrotoxics Subjective ROS Limited/Unobtainable: No Constitutional: Reports: malaise Objective Objective Last 24 Hour Vital Signs Date Time Temp Pulse Resp B/P (MAP) Pulse Ox O2 Delivery O2 Flow Rate FiO2 02/01/18 09:16 73 127/77 02/01/18 09:16 73 127/77 02/01/18 07:03 125/84 02/01/18 04:00 97.0 82 20 125/84 96 Room Air 97.0 02/01/18 03:32 74 02/01/18 00:05 118/72 02/01/18 00:00 97.0 79 20 118/72 96 Room Air 97.0 01/31/18 23:44 70 01/31/18 22:34 74 120/75 01/31/18 20:00 98.1 82 20 109/59 96 Room Air 98.1 01/31/18 20:00 77 01/31/18 16:00 97.2 82 20 109/63 97 Room Air 97.2 01/31/18 15:32 111/63 01/31/18 15:30 77 01/31/18 12:00 97.8 75 21 111/63 95 Room Air 97.8 01/31/18 11:27 71 Intake and Output 01/31/18 02/01/18 19:00 07:00 Intake Total 1300 ml 1450 ml Balance 1300 ml 1450 ml Intake Oral 200 ml IV Total 1100 ml 1450 ml # Voids 1 Laboratory Tests 02/01/18 08:00: White Blood Count 17.8H, Red Blood Count 2.88L, Hemoglobin 9.3L, Hematocrit 27.0L, Mean Corpuscular Volume 94, Mean Corpuscular Hemoglobin 32.2H, Mean Corpuscular Hemoglobin Concent 34.3, Red Cell Distribution Width 13.3, Platelet Count 127L, Mean Platelet Volume 8.1, Neutrophils (%) (Auto) 76.7H, Lymphocytes (%) (Auto) 17.4L, Monocytes (%) (Auto) 3.6, Eosinophils (%) (Auto) 2.0, Basophils (%) (Auto) 0.4, Sodium Level 142, Potassium Level 3.8, Chloride Level 110H, Carbon Dioxide Level 24, Anion Gap 8, Blood Urea Nitrogen 41H, Creatinine 2.3H, Estimat Glomerular Filtration Rate , Glucose Level 111H, Calcium Level 9.5 , Total Bilirubin 0.3, Aspartate Amino Transf (AST/SGOT) 41H, Alanine Aminotransferase (ALT/SGPT) 73, Alkaline Phosphatase 85, Total Protein 6.5, Albumin 2.8L, Globulin 3.7, Albumin/Globulin Ratio 0.8L Height (Feet): 5 Height (Inches): 6.00 Weight (Pounds): 160 General Appearance: no apparent distress Cardiovascular: normal rate Respiratory/Chest: decreased breath sounds Abdomen: distended Objective no change JIGNESH MURCIA Feb 01, 2018 10:30
[2018-02-01 12:00] VITALS: BP 123/71
--- NOTE | 2018-02-01 13:10 | General Progress Note ---
Assessment/Plan Status: stable Assessment/Plan 1. Probable upper gastrointestinal hemorrhage. 2. UTI 3. Hypertension. 4. Hypercholesterolemia. 5. Non compliance with treatment 6. Cerebrovascular disease. 7. Left hemiplegia. 8. Hypercholesterolemia. 9. Expressive aphasia. 10. GI-DVT prophylaxia plan: New Leukocytosis, leukemoid reaction ?!- Improving current management current IV- Abx, for UTI-Klebsiella Subjective ROS Limited/Unobtainable: No Constitutional: Reports: weakness HEENT: Reports: no symptoms Cardiovascular: Reports: no symptoms Allergies: Coded Allergies: No Known Allergies (Unverified , 07/28/16) Objective Last 24 Hour Vital Signs Date Time Temp Pulse Resp B/P (MAP) Pulse Ox O2 Delivery O2 Flow Rate FiO2 02/01/18 09:16 73 127/77 02/01/18 09:16 73 127/77 02/01/18 08:00 97.2 73 20 111/78 97 Room Air 97.2 02/01/18 07:20 96 02/01/18 07:03 125/84 02/01/18 04:00 97.0 82 20 125/84 96 Room Air 97.0 02/01/18 03:32 74 02/01/18 00:05 118/72 02/01/18 00:00 97.0 79 20 118/72 96 Room Air 97.0 01/31/18 23:44 70 01/31/18 22:34 74 120/75 01/31/18 20:00 98.1 82 20 109/59 96 Room Air 98.1 01/31/18 20:00 77 01/31/18 16:00 97.2 82 20 109/63 97 Room Air 97.2 01/31/18 15:32 111/63 01/31/18 15:30 77 Intake and Output 01/31/18 02/01/18 19:00 07:00 Intake Total 1300 ml 1450 ml Balance 1300 ml 1450 ml Intake Oral 200 ml IV Total 1100 ml 1450 ml # Voids 1 Laboratory Tests 02/01/18 08:00: White Blood Count 17.8H, Red Blood Count 2.88L, Hemoglobin 9.3L, Hematocrit 27.0L, Mean Corpuscular Volume 94, Mean Corpuscular Hemoglobin 32.2H, Mean Corpuscular Hemoglobin Concent 34.3, Red Cell Distribution Width 13.3, Platelet Count 127L, Mean Platelet Volume 8.1, Neutrophils (%) (Auto) 76.7H, Lymphocytes (%) (Auto) 17.4L, Monocytes (%) (Auto) 3.6, Eosinophils (%) (Auto) 2.0, Basophils (%) (Auto) 0.4, Sodium Level 142, Potassium Level 3.8, Chloride Level 110H, Carbon Dioxide Level 24, Anion Gap 8, Blood Urea Nitrogen 41H, Creatinine 2.3H, Estimat Glomerular Filtration Rate , Glucose Level 111H, Calcium Level 9.5 , Total Bilirubin 0.3, Aspartate Amino Transf (AST/SGOT) 41H, Alanine Aminotransferase (ALT/SGPT) 73, Alkaline Phosphatase 85, Total Protein 6.5, Albumin 2.8L, Globulin 3.7, Albumin/Globulin Ratio 0.8L Height (Feet): 5 Height (Inches): 6.00 Weight (Pounds): 160 General Appearance: no apparent distress EENT: PERRL/EOMI Neck: supple Cardiovascular: normal rate Respiratory/Chest: lungs clear Abdomen: soft Extremities: other - left hemiParesis Neurologic: oriented x 3 Nilesh Rodriguez MD Feb 01, 2018 13:10
--- NOTE | 2018-02-01 15:24 | Infectious Diseases Prog Note ---
Assessment/Plan Assessment/Plan Abx: IV Vancomcyn 01/29- Zosyn 01/29- Ceftriaxone x1 01/28 Assessment: Leukocytosis- r/o bacteremia, uti- ?reactive component from GIB; improving -CXR: no acute process -CT abd/p wo: Evidence of constipation and likely rectal fecal impaction. No acute process otherwise. Colonic diverticulosis. Cholelithiasis. Multiple renal lesions of indeterminate attenuation. Most likely proteinaceous cysts, given evidence of multiple bilateral renal cysts and absence of solid lesions on prior sonogram of 07/29/2016. Nonetheless, repeat sonography is recommended. Evidence of bladder wall thickening, may indicate cystitis or chronic bladder outlet obstruction. Cardiomegaly. Small anterior wall pericardial thickening versus fluid. Nonspecific diffuse left adrenal enlargement. -Bcx 01/28 NTD -u/a wbc 5-10, nit neg, leuk +1; ucx >100K K.pna (R amp, Cipro; I Levo, otherwise S) -influenza sc neg -Cdiff neg Fever prior to admission, none here GIB HEATH on? CKD; improving -Renal US: Bilateral renal lesions demonstrated on recent CT scan demonstrated to be benign simple cysts. No solid lesion demonstrated. Negative for hydronephrosis. hx of proteus bacteremia/pyelonephritis 07/2016 HTN HLD CVA w/ residual L hemiparesis former smoker seizure disorder expressive aphasia, bedbound NH resident Plan: -Continue IV Ceftriaxone abx d#5/7-10 for suspected K.pna UTI; upon discharge can be transitioned to PO Keflex (renally dosed) -01/31 SP IV vanco and Zosyn #3 -01/28 SP Ceftriaxone x1 -f/u repeat 2 sets of Bcx -Monitor CBC/BMP, temperatures -aspiration precautions -GI following Thank you for this consultation. Will continue to follow along with you. Discussed with RN. Subjective Allergies: Coded Allergies: No Known Allergies (Unverified , 07/28/16) Subjective afebrile leukocytosis improving Bcx NTD Objective Vital Signs Last 24 Hour Vital Signs Date Time Temp Pulse Resp B/P (MAP) Pulse Ox O2 Delivery O2 Flow Rate FiO2 02/01/18 12:00 97.2 70 18 123/71 98 Room Air 97.2 02/01/18 09:16 73 127/77 02/01/18 09:16 73 127/77 02/01/18 08:00 97.2 73 20 111/78 97 Room Air 97.2 02/01/18 07:20 96 02/01/18 07:03 125/84 02/01/18 04:00 97.0 82 20 125/84 96 Room Air 97.0 02/01/18 03:32 74 02/01/18 00:05 118/72 02/01/18 00:00 97.0 79 20 118/72 96 Room Air 97.0 01/31/18 23:44 70 01/31/18 22:34 74 120/75 01/31/18 20:00 98.1 82 20 109/59 96 Room Air 98.1 01/31/18 20:00 77 01/31/18 16:00 97.2 82 20 109/63 97 Room Air 97.2 01/31/18 15:32 111/63 01/31/18 15:30 77 Height (Feet): 5 Height (Inches): 6.00 Weight (Pounds): 160 Objective GENERAL: The patient is well-developed and well-nourished male, in no apparent distress. HEENT: Eyes, pupils are equal and responsive to light and accommodation. Extraocular movements are intact. NECK: Supple without lymphadenopathy. CHEST: Lungs are clear to auscultation bilaterally without wheezes or rales. CARDIOVASCULAR: Regular rate. S1 and S2 are normal without murmurs, rubs, or gallops. ABDOMEN: Soft, nontender, and nondistended. Positive bowel sounds. No evidence of hepatosplenomegaly. Currently, no rebound or guarding noted. EXTREMITIES: Negative for clubbing, cyanosis, or edema. Microbiology Date/Time Source Procedure Growth Status 01/30/18 15:15 Blood Blood Culture - Preliminary NO GROWTH AFTER 24 HOURS Resulted 01/30/18 15:00 Blood Blood Culture - Preliminary NO GROWTH AFTER 24 HOURS Resulted 01/30/18 10:00 Nasal Nares MRSA Culture - Final NO METHICILLIN RESISTANT STAPH AUREUS... Complete 01/30/18 12:00 Stool Clostridium difficile Toxin Assay - Final Complete 01/29/18 22:30 Rectum VRE Culture - Final NO VANCOMYCIN RESISTANT ENTEROCOCCUS ... Complete Laboratory Tests Test 02/01/18 08:00 White Blood Count 17.8 K/UL (4.8-10.8) H Red Blood Count 2.88 M/UL (4.70-6.10) L Hemoglobin 9.3 G/DL (14.2-18.0) L Hematocrit 27.0 % (42.0-52.0) L Mean Corpuscular Volume 94 FL (80-99) Mean Corpuscular Hemoglobin 32.2 PG (27.0-31.0) H Mean Corpuscular Hemoglobin Concent 34.3 G/DL (32.0-36.0) Red Cell Distribution Width 13.3 % (11.6-14.8) Platelet Count 127 K/UL (150-450) L Mean Platelet Volume 8.1 FL (6.5-10.1) Neutrophils (%) (Auto) 76.7 % (45.0-75.0) H Lymphocytes (%) (Auto) 17.4 % (20.0-45.0) L Monocytes (%) (Auto) 3.6 % (1.0-10.0) Eosinophils (%) (Auto) 2.0 % (0.0-3.0) Basophils (%) (Auto) 0.4 % (0.0-2.0) Sodium Level 142 MMOL/L (136-145) Potassium Level 3.8 MMOL/L (3.5-5.1) Chloride Level 110 MMOL/L (98-107) H Carbon Dioxide Level 24 MMOL/L (21-32) Anion Gap 8 mmol/L (5-15) Blood Urea Nitrogen 41 mg/dL (7-18) H Creatinine 2.3 MG/DL (0.55-1.30) H Estimat Glomerular Filtration Rate mL/min (>60) Glucose Level 111 MG/DL (74-106) H Calcium Level 9.5 MG/DL (8.5-10.1) Total Bilirubin 0.3 MG/DL (0.2-1.0) Aspartate Amino Transf (AST/SGOT) 41 U/L (15-37) H Alanine Aminotransferase (ALT/SGPT) 73 U/L (12-78) Alkaline Phosphatase 85 U/L (46-116) Total Protein 6.5 G/DL (6.4-8.2) Albumin 2.8 G/DL (3.4-5.0) L Globulin 3.7 g/dL Albumin/Globulin Ratio 0.8 (1.0-2.7) L Current Medications Medications (Trade) Dose Ordered Sig/Thien Route PRN Reason Start Time Stop Time Status Last Admin Dose Admin Acetaminophen (Tylenol) 650 mg Q4H PRN ORAL Mild Pain/Temp > 100.5 01/29/18 11:45 02/28/18 11:44 Amlodipine Besylate (Norvasc) 2.5 mg DAILY ORAL 01/31/18 09:00 03/02/18 08:59 02/01/18 09:16 Atorvastatin Calcium (Lipitor) 10 mg BEDTIME ORAL 01/29/18 21:00 02/28/18 20:59 01/31/18 22:31 Ceftriaxone Sodium 1 gm/ Dextrose 110 ml @ 220 mls/hr Q24H IVPB 01/31/18 21:00 02/07/18 20:59 01/31/18 22:38 Dextrose/ Electrolytes 1,000 ml @ 100 mls/hr Q10H IV 01/30/18 09:00 03/01/18 08:59 02/01/18 11:08 Folic Acid (Folate) 2 mg DAILY ORAL 01/31/18 11:00 03/02/18 10:59 02/01/18 09:15 Hydralazine HCl (Apresoline) 10 mg Q8HR ORAL 01/31/18 14:00 03/02/18 13:59 02/01/18 07:03 Iron Sucrose 100 mg/Sodium Chloride 115 ml @ 230 mls/hr BEDTIME IV 01/30/18 21:00 02/03/18 21:29 01/31/18 22:30 Labetalol HCl (Normodyne) 200 mg Q12HR ORAL 01/29/18 21:00 02/28/18 20:59 02/01/18 09:16 Multivitamins (Multivitamins) 1 tab DAILY ORAL 01/30/18 09:00 03/01/18 08:59 02/01/18 09:15 Pantoprazole (Protonix) 40 mg EVERY 12 HOURS IVP 01/29/18 09:15 02/28/18 09:14 02/01/18 09:17 Tamsulosin HCl (Flomax) 0.4 mg BEDTIME ORAL 01/30/18 21:00 03/01/18 20:59 01/31/18 22:31 Chloe Bear M.D. Feb 01, 2018 15:24
[2018-02-01 16:00] VITALS: BP 129/75
--- NOTE | 2018-02-01 19:18 | Cardiology Report ---
APPROVED REPORT EKG Measurement Heart [id number] Normal sinus rhythm Cannot rule out Inferior infarct, age undetermined Abnormal ECG
[2018-02-01 20:00] VITALS: BP 134/81
[2018-02-01] MEDS: Tamsulosin 0.4mg cap ORAL SCH (21:47)
[2018-02-01] MEDS: cefTRIAXone 1 GM in D5W 110 ML IVPB SCH (21:49)
[2018-02-01] MEDS: Iron Sucrose 100 MG in NS 110 ML IV SCH (22:47)
[2018-02-02] VITALS: BP 129/79
[2018-02-02 04:00] VITALS: BP 139/80
[2018-02-02] MEDS: HydrALAZINE 10mg Tab ORAL SCH ×2 (05:41→14:35)
[2018-02-02 07:12] LABS: BASOPHILS % (AUTO) 0.8 % (0.0-2.0); EOSINOPHILS % (AUTO) 2.9 % (0.0-3.0); HEMATOCRIT 26.7 % (42.0-52.0); HEMOGLOBIN 8.9 G/DL (14.2-18.0); LYMPHOCYTES % (AUTO) 31.2 % (20.0-45.0); MEAN CORPUSCULAR VOLUME 93 FL (80-99); MONOCYTES % (AUTO) 6.5 % (1.0-10.0); NEUTROPHILS % (AUTO) 58.7 % (45.0-75.0); PLATELET COUNT 126 K/UL (150-450); RED BLOOD COUNT 2.87 M/UL (4.70-6.10); RED CELL DISTRIBUTION WIDTH 13.5 % (11.6-14.8); WHITE BLOOD COUNT 9.5 K/UL (4.8-10.8)
[2018-02-02 07:29] LABS: ALANINE AMINOTRANSFERASE 60 U/L (12-78); ALBUMIN 2.7 G/DL (3.4-5.0); ALBUMIN/GLOBULIN RATIO 0.8 (1.0-2.7); ALKALINE PHOSPHATASE 76 U/L (46-116); ANION GAP 9 mmol/L (5-15); ASPARTATE AMINO TRANSFERASE 32 U/L (15-37); BILIRUBIN,TOTAL 0.2 MG/DL (0.2-1.0); BLOOD UREA NITROGEN 35 mg/dL (7-18); CARBON DIOXIDE 23 MMOL/L (21-32); CHLORIDE 113 MMOL/L (98-107); CREATININE 2.3 MG/DL (0.55-1.30); POTASSIUM 4.2 MMOL/L (3.5-5.1); SODIUM 145 MMOL/L (136-145)
[2018-02-02 08:00] VITALS: BP 133/82
--- NOTE | 2018-02-02 09:21 | Nephrology Progress Note ---
Assessment/Plan Problem List: (1) Acute renal failure (2) Anemia (3) UTI (urinary tract infection) Assessment acute on chronic renal failure- Cr 2.2 to 3.1 down to 2.9 now 2.3 others; 1. Hematemesis. 2. Probable upper gastrointestinal hemorrhage. 3. Hypertension. 4. Hypercholesterolemia. 5. Seizure disorder. 6. Cerebrovascular disease. 7. Left hemiplegia. 8. Hypercholesterolemia. 9. Expressive aphasia. Plan Plan: Adjust BP meds- Flomax- Kidney CRISTIANO Hydrate- monitor renal parammeters Avoid nephrotoxics Subjective ROS Limited/Unobtainable: No Constitutional: Reports: malaise Objective Objective Last 24 Hour Vital Signs Date Time Temp Pulse Resp B/P (MAP) Pulse Ox O2 Delivery O2 Flow Rate FiO2 02/02/18 05:41 139/80 02/02/18 04:00 97.8 70 20 139/80 100 Room Air 97.8 02/02/18 04:00 67 02/02/18 00:00 71 02/02/18 00:00 97.9 73 20 129/79 97 Room Air 97.9 02/01/18 21:49 134/81 02/01/18 21:49 76 134/81 02/01/18 20:00 87 02/01/18 20:00 97.7 76 20 134/81 99 Room Air 97.7 02/01/18 16:00 98.0 75 20 129/75 95 Room Air 98.0 02/01/18 15:18 76 02/01/18 12:01 76 02/01/18 12:00 97.2 70 18 123/71 98 Room Air 97.2 Intake and Output 02/01/18 02/02/18 19:00 07:00 Intake Total 1700 ml 400 ml Balance 1700 ml 400 ml Intake Oral 600 ml IV Total 1100 ml 400 ml # Voids 2 3 # Bowel Movements 1 1 Laboratory Tests 02/02/18 04:00: Stool Occult Blood [Pending] 02/02/18 06:50: White Blood Count 9.5, Red Blood Count 2.87L, Hemoglobin 8.9L, Hematocrit 26.7L , Mean Corpuscular Volume 93, Mean Corpuscular Hemoglobin 30.8, Mean Corpuscular Hemoglobin Concent 33.1, Red Cell Distribution Width 13.5, Platelet Count 126L, Mean Platelet Volume 7.7, Neutrophils (%) (Auto) 58.7, Lymphocytes ( %) (Auto) 31.2, Monocytes (%) (Auto) 6.5, Eosinophils (%) (Auto) 2.9, Basophils (%) (Auto) 0.8, Sodium Level 145, Potassium Level 4.2, Chloride Level 113H, Carbon Dioxide Level 23, Anion Gap 9, Blood Urea Nitrogen 35H, Creatinine 2.3H, Estimat Glomerular Filtration Rate , Glucose Level 97, Calcium Level 9.0, Total Bilirubin 0.2, Aspartate Amino Transf (AST/SGOT) 32, Alanine Aminotransferase ( ALT/SGPT) 60, Alkaline Phosphatase 76, Total Protein 6.3L, Albumin 2.7L, Globulin 3.6, Albumin/Globulin Ratio 0.8L Height (Feet): 5 Height (Inches): 6.00 Weight (Pounds): 160 General Appearance: no apparent distress Objective no change JIGNESH MURCIA Feb 02, 2018 09:21
[2018-02-02] MEDS ORDERED: D5W 550ml IV ONE (09:39)
[2018-02-02] MEDS ORDERED: Tubing IV Secondary IV ONE (09:39)
[2018-02-02] MEDS: Pantoprazole Inj IVP SCH (10:05)
[2018-02-02] MEDS: Labetalol 200mg tab ORAL SCH (10:06)
[2018-02-02] MEDS: D5W w/KCl 20mEq 1,000 ML IV SCH (10:14)
[2018-02-02 12:00] VITALS: BP 132/82
--- NOTE | 2018-02-02 12:47 | Infectious Diseases Prog Note ---
Assessment/Plan Assessment/Plan Assessment: Leukocytosis; resolved-likely 2ry to uti and possible reactive component from GIB -CXR: no acute process -CT abd/p wo: Evidence of constipation and likely rectal fecal impaction. No acute process otherwise. Colonic diverticulosis. Cholelithiasis. Multiple renal lesions of indeterminate attenuation. Most likely proteinaceous cysts, given evidence of multiple bilateral renal cysts and absence of solid lesions on prior sonogram of 07/29/2016. Nonetheless, repeat sonography is recommended. Evidence of bladder wall thickening, may indicate cystitis or chronic bladder outlet obstruction. Cardiomegaly. Small anterior wall pericardial thickening versus fluid. Nonspecific diffuse left adrenal enlargement. -Bcx 01/28 NTD -u/a wbc 5-10, nit neg, leuk +1; ucx >100K K.pna (R amp, Cipro; I Levo, otherwise S) -influenza sc neg -Cdiff neg Fever prior to admission, none here GIB HEATH on? CKD; improving -Renal US: Bilateral renal lesions demonstrated on recent CT scan demonstrated to be benign simple cysts. No solid lesion demonstrated. Negative for hydronephrosis. hx of proteus bacteremia/pyelonephritis 07/2016 HTN HLD CVA w/ residual L hemiparesis former smoker seizure disorder expressive aphasia, bedbound NH resident Plan: -Continue IV Ceftriaxone abx d#04/15 for suspected K.pna UTI; upon discharge can be transitioned to PO Keflex (renally dosed) -01/31 SP IV vanco and Zosyn #3 -01/28 SP Ceftriaxone x1 -f/u repeat 2 sets of Bcx -Monitor CBC/BMP, temperatures -aspiration precautions -GI following Thank you for this consultation. Will continue to follow along with you. Discussed with RN. Subjective Allergies: Coded Allergies: No Known Allergies (Unverified , 07/28/16) Subjective afebrile leukocytosis resolved Bcx NTD for discharge today Objective Vital Signs Last 24 Hour Vital Signs Date Time Temp Pulse Resp B/P (MAP) Pulse Ox O2 Delivery O2 Flow Rate FiO2 02/02/18 10:06 68 132/82 02/02/18 10:06 68 132/82 02/02/18 08:00 81 02/02/18 08:00 97.3 68 20 133/82 98 Room Air 97.3 02/02/18 05:41 139/80 02/02/18 04:00 97.8 70 20 139/80 100 Room Air 97.8 02/02/18 04:00 67 02/02/18 00:00 71 02/02/18 00:00 97.9 73 20 129/79 97 Room Air 97.9 02/01/18 21:49 134/81 02/01/18 21:49 76 134/81 02/01/18 20:00 87 02/01/18 20:00 97.7 76 20 134/81 99 Room Air 97.7 02/01/18 16:00 98.0 75 20 129/75 95 Room Air 98.0 02/01/18 15:18 76 Height (Feet): 5 Height (Inches): 6.00 Weight (Pounds): 160 Objective GENERAL: The patient is well-developed and well-nourished male, in no apparent distress. HEENT: Eyes, pupils are equal and responsive to light and accommodation. Extraocular movements are intact. NECK: Supple without lymphadenopathy. CHEST: Lungs are clear to auscultation bilaterally without wheezes or rales. CARDIOVASCULAR: Regular rate. S1 and S2 are normal without murmurs, rubs, or gallops. ABDOMEN: Soft, nontender, and nondistended. Positive bowel sounds. No evidence of hepatosplenomegaly. Currently, no rebound or guarding noted. EXTREMITIES: Negative for clubbing, cyanosis, or edema. Microbiology Date/Time Source Procedure Growth Status 01/30/18 15:15 Blood Blood Culture - Preliminary NO GROWTH AFTER 48 HOURS Resulted 01/30/18 15:00 Blood Blood Culture - Preliminary NO GROWTH AFTER 48 HOURS Resulted Laboratory Tests Test 02/02/18 04:00 02/02/18 06:50 Stool Occult Blood Positive (NEGATIVE) White Blood Count 9.5 K/UL (4.8-10.8) Red Blood Count 2.87 M/UL (4.70-6.10) L Hemoglobin 8.9 G/DL (14.2-18.0) L Hematocrit 26.7 % (42.0-52.0) L Mean Corpuscular Volume 93 FL (80-99) Mean Corpuscular Hemoglobin 30.8 PG (27.0-31.0) Mean Corpuscular Hemoglobin Concent 33.1 G/DL (32.0-36.0) Red Cell Distribution Width 13.5 % (11.6-14.8) Platelet Count 126 K/UL (150-450) L Mean Platelet Volume 7.7 FL (6.5-10.1) Neutrophils (%) (Auto) 58.7 % (45.0-75.0) Lymphocytes (%) (Auto) 31.2 % (20.0-45.0) Monocytes (%) (Auto) 6.5 % (1.0-10.0) Eosinophils (%) (Auto) 2.9 % (0.0-3.0) Basophils (%) (Auto) 0.8 % (0.0-2.0) Sodium Level 145 MMOL/L (136-145) Potassium Level 4.2 MMOL/L (3.5-5.1) Chloride Level 113 MMOL/L (98-107) H Carbon Dioxide Level 23 MMOL/L (21-32) Anion Gap 9 mmol/L (5-15) Blood Urea Nitrogen 35 mg/dL (7-18) H Creatinine 2.3 MG/DL (0.55-1.30) H Estimat Glomerular Filtration Rate mL/min (>60) Glucose Level 97 MG/DL (74-106) Calcium Level 9.0 MG/DL (8.5-10.1) Total Bilirubin 0.2 MG/DL (0.2-1.0) Aspartate Amino Transf (AST/SGOT) 32 U/L (15-37) Alanine Aminotransferase (ALT/SGPT) 60 U/L (12-78) Alkaline Phosphatase 76 U/L (46-116) Total Protein 6.3 G/DL (6.4-8.2) L Albumin 2.7 G/DL (3.4-5.0) L Globulin 3.6 g/dL Albumin/Globulin Ratio 0.8 (1.0-2.7) L Current Medications Medications (Trade) Dose Ordered Sig/Thien Route PRN Reason Start Time Stop Time Status Last Admin Dose Admin Acetaminophen (Tylenol) 650 mg Q4H PRN ORAL Mild Pain/Temp > 100.5 01/29/18 11:45 02/28/18 11:44 Amlodipine Besylate (Norvasc) 2.5 mg DAILY ORAL 01/31/18 09:00 03/02/18 08:59 02/02/18 10:06 Atorvastatin Calcium (Lipitor) 10 mg BEDTIME ORAL 01/29/18 21:00 02/28/18 20:59 02/01/18 21:47 Ceftriaxone Sodium 1 gm/ Dextrose 110 ml @ 220 mls/hr Q24H IVPB 01/31/18 21:00 02/07/18 20:59 02/01/18 21:49 Dextrose/ Electrolytes 1,000 ml @ 100 mls/hr Q10H IV 01/30/18 09:00 03/01/18 08:59 02/02/18 10:14 Folic Acid (Folate) 2 mg DAILY ORAL 01/31/18 11:00 03/02/18 10:59 02/02/18 10:06 Hydralazine HCl (Apresoline) 10 mg Q8HR ORAL 01/31/18 14:00 03/02/18 13:59 02/02/18 05:41 Iron Sucrose 100 mg/Sodium Chloride 115 ml @ 230 mls/hr BEDTIME IV 01/30/18 21:00 02/03/18 21:29 02/01/18 22:47 Labetalol HCl (Normodyne) 200 mg Q12HR ORAL 01/29/18 21:00 02/28/18 20:59 02/02/18 10:06 Multivitamins (Multivitamins) 1 tab DAILY ORAL 01/30/18 09:00 03/01/18 08:59 02/02/18 10:05 Pantoprazole (Protonix) 40 mg EVERY 12 HOURS IVP 01/29/18 09:15 02/28/18 09:14 02/02/18 10:05 Tamsulosin HCl (Flomax) 0.4 mg BEDTIME ORAL 01/30/18 21:00 03/01/18 20:59 02/01/18 21:47 Chloe Bear M.D. Feb 02, 2018 12:47
--- NOTE | 2018-02-02 13:24 | General Progress Note ---
Assessment/Plan Problem List: (1) HTN (hypertension) ICD Codes: I10 - Essential (primary) hypertension SNOMED: 08112348 (2) Seizure disorder ICD Codes: G40.909 - Epilepsy, unspecified, not intractable, without status epilepticus SNOMED: 233529235 (3) Anemia ICD Codes: D64.9 - Anemia, unspecified SNOMED: 591123483 Assessment/Plan last stool ob positive drop in H&H on ppi Bid now improved WBC plan EGD on Monday Subjective ROS Limited/Unobtainable: Yes Allergies: Coded Allergies: No Known Allergies (Unverified , 07/28/16) Subjective no event Objective Last 24 Hour Vital Signs Date Time Temp Pulse Resp B/P (MAP) Pulse Ox O2 Delivery O2 Flow Rate FiO2 02/02/18 10:06 68 132/82 02/02/18 10:06 68 132/82 02/02/18 08:00 81 02/02/18 08:00 97.3 68 20 133/82 98 Room Air 97.3 02/02/18 05:41 139/80 02/02/18 04:00 97.8 70 20 139/80 100 Room Air 97.8 02/02/18 04:00 67 02/02/18 00:00 71 02/02/18 00:00 97.9 73 20 129/79 97 Room Air 97.9 02/01/18 21:49 134/81 02/01/18 21:49 76 134/81 02/01/18 20:00 87 02/01/18 20:00 97.7 76 20 134/81 99 Room Air 97.7 02/01/18 16:00 98.0 75 20 129/75 95 Room Air 98.0 02/01/18 15:18 76 Intake and Output 02/01/18 02/02/18 19:00 07:00 Intake Total 1700 ml 400 ml Balance 1700 ml 400 ml Intake Oral 600 ml IV Total 1100 ml 400 ml # Voids 2 3 # Bowel Movements 1 1 Laboratory Tests 02/02/18 04:00: Stool Occult Blood Positive 02/02/18 06:50: White Blood Count 9.5, Red Blood Count 2.87L, Hemoglobin 8.9L, Hematocrit 26.7L , Mean Corpuscular Volume 93, Mean Corpuscular Hemoglobin 30.8, Mean Corpuscular Hemoglobin Concent 33.1, Red Cell Distribution Width 13.5, Platelet Count 126L, Mean Platelet Volume 7.7, Neutrophils (%) (Auto) 58.7, Lymphocytes ( %) (Auto) 31.2, Monocytes (%) (Auto) 6.5, Eosinophils (%) (Auto) 2.9, Basophils (%) (Auto) 0.8, Sodium Level 145, Potassium Level 4.2, Chloride Level 113H, Carbon Dioxide Level 23, Anion Gap 9, Blood Urea Nitrogen 35H, Creatinine 2.3H, Estimat Glomerular Filtration Rate , Glucose Level 97, Calcium Level 9.0, Total Bilirubin 0.2, Aspartate Amino Transf (AST/SGOT) 32, Alanine Aminotransferase ( ALT/SGPT) 60, Alkaline Phosphatase 76, Total Protein 6.3L, Albumin 2.7L, Globulin 3.6, Albumin/Globulin Ratio 0.8L Height (Feet): 5 Height (Inches): 6.00 Weight (Pounds): 160 General Appearance: no apparent distress EENT: normal ENT inspection Neck: supple Cardiovascular: normal rate Respiratory/Chest: decreased breath sounds Abdomen: normal bowel sounds, non tender, soft Extremities: non-tender KERRY JONES Feb 02, 2018 13:24
[2018-02-02 14:35] VITALS: BP 132/82
--- NOTE | 2018-02-02 16:16 | Internal Med Progress Note ---
Subjective Date of Service: Feb 02, 2018 Physician Name Huang,Jonathan Attending Physician Nilesh Rodriguez MD Current Medications Medications (Trade) Dose Ordered Sig/Thien Route PRN Reason Start Time Stop Time Status Last Admin Dose Admin Acetaminophen (Tylenol) 650 mg Q4H PRN ORAL Mild Pain/Temp > 100.5 01/29/18 11:45 02/28/18 11:44 Amlodipine Besylate (Norvasc) 2.5 mg DAILY ORAL 01/31/18 09:00 03/02/18 08:59 02/02/18 10:06 Atorvastatin Calcium (Lipitor) 10 mg BEDTIME ORAL 01/29/18 21:00 02/28/18 20:59 02/01/18 21:47 Ceftriaxone Sodium 1 gm/ Dextrose 110 ml @ 220 mls/hr Q24H IVPB 01/31/18 21:00 02/07/18 20:59 02/01/18 21:49 Dextrose/ Electrolytes 1,000 ml @ 100 mls/hr Q10H IV 01/30/18 09:00 03/01/18 08:59 02/02/18 10:14 Folic Acid (Folate) 2 mg DAILY ORAL 01/31/18 11:00 03/02/18 10:59 02/02/18 10:06 Hydralazine HCl (Apresoline) 10 mg Q8HR ORAL 01/31/18 14:00 03/02/18 13:59 02/02/18 14:35 Iron Sucrose 100 mg/Sodium Chloride 115 ml @ 230 mls/hr BEDTIME IV 01/30/18 21:00 02/03/18 21:29 02/01/18 22:47 Labetalol HCl (Normodyne) 200 mg Q12HR ORAL 01/29/18 21:00 02/28/18 20:59 02/02/18 10:06 Multivitamins (Multivitamins) 1 tab DAILY ORAL 01/30/18 09:00 03/01/18 08:59 02/02/18 10:05 Pantoprazole (Protonix) 40 mg EVERY 12 HOURS IVP 01/29/18 09:15 02/28/18 09:14 02/02/18 10:05 Tamsulosin HCl (Flomax) 0.4 mg BEDTIME ORAL 01/30/18 21:00 03/01/18 20:59 02/01/18 21:47 Allergies: Coded Allergies: No Known Allergies (Unverified , 07/28/16) ROS Limited/Unobtainable: No Constitutional: Reports: no symptoms HEENT: Reports: no symptoms Cardiovascular: Reports: no symptoms Respiratory: Reports: no symptoms Gastrointestinal/Abdominal: Reports: no symptoms Genitourinary: Reports: no symptoms Neurologic/Psychiatric: Reports: no symptoms Subjective 72 YO M admitted with hematemesis. EGD 01/30/18 cancelled due to leukocytosis. Cover for Int Med - Dr Rodriguez. Objective Last Vital Signs Date Time Temp Pulse Resp B/P (MAP) Pulse Ox O2 Delivery O2 Flow Rate FiO2 02/02/18 14:35 132/82 02/02/18 12:00 72 02/02/18 12:00 97.3 18 99 Room Air 97.3 Laboratory Tests Test 02/02/18 04:00 02/02/18 06:50 Stool Occult Blood Positive (NEGATIVE) White Blood Count 9.5 K/UL (4.8-10.8) Red Blood Count 2.87 M/UL (4.70-6.10) L Hemoglobin 8.9 G/DL (14.2-18.0) L Hematocrit 26.7 % (42.0-52.0) L Mean Corpuscular Volume 93 FL (80-99) Mean Corpuscular Hemoglobin 30.8 PG (27.0-31.0) Mean Corpuscular Hemoglobin Concent 33.1 G/DL (32.0-36.0) Red Cell Distribution Width 13.5 % (11.6-14.8) Platelet Count 126 K/UL (150-450) L Mean Platelet Volume 7.7 FL (6.5-10.1) Neutrophils (%) (Auto) 58.7 % (45.0-75.0) Lymphocytes (%) (Auto) 31.2 % (20.0-45.0) Monocytes (%) (Auto) 6.5 % (1.0-10.0) Eosinophils (%) (Auto) 2.9 % (0.0-3.0) Basophils (%) (Auto) 0.8 % (0.0-2.0) Sodium Level 145 MMOL/L (136-145) Potassium Level 4.2 MMOL/L (3.5-5.1) Chloride Level 113 MMOL/L (98-107) H Carbon Dioxide Level 23 MMOL/L (21-32) Anion Gap 9 mmol/L (5-15) Blood Urea Nitrogen 35 mg/dL (7-18) H Creatinine 2.3 MG/DL (0.55-1.30) H Estimat Glomerular Filtration Rate mL/min (>60) Glucose Level 97 MG/DL (74-106) Calcium Level 9.0 MG/DL (8.5-10.1) Total Bilirubin 0.2 MG/DL (0.2-1.0) Aspartate Amino Transf (AST/SGOT) 32 U/L (15-37) Alanine Aminotransferase (ALT/SGPT) 60 U/L (12-78) Alkaline Phosphatase 76 U/L (46-116) Total Protein 6.3 G/DL (6.4-8.2) L Albumin 2.7 G/DL (3.4-5.0) L Globulin 3.6 g/dL Albumin/Globulin Ratio 0.8 (1.0-2.7) L Intake and Output 02/01/18 02/02/18 19:00 07:00 Intake Total 1700 ml 400 ml Balance 1700 ml 400 ml Intake Oral 600 ml IV Total 1100 ml 400 ml # Voids 2 3 # Bowel Movements 1 1 Objective General Appearance: WD/WN, no apparent distress, alert EENT: PERRL/EOMI, normal ENT inspection, TMs normal Neck: non-tender, normal alignment, supple Cardiovascular: normal peripheral pulses, normal rate, regular rhythm, no gallop/murmur, no JVD Respiratory/Chest: chest wall non-tender, lungs clear, normal breath sounds, no respiratory distress, no accessory muscle use Abdomen: normal bowel sounds, distended, guarding, tender Extremities: normal range of motion, non-tender Neurologic: ophthalmic technologist II-XII grossly normal, no motor/sensory deficits Skin: normal pigmentation, warm/dry Assessment/Plan Problem List: (1) Hematemesis Assessment & Plan: Endoscopy held 01/30/18 due to leukocytosis-see GI note. Continue protonix (2) Leukocytosis (3) Renal failure (4) HTN (hypertension) Assessment & Plan: Continue labetolol, norvasc and hydralazine (5) Hypercholesteremia (6) Seizure disorder Assessment & Plan: See neurology note (7) Cerebral vascular disease (8) Left hemiplegia Assessment & Plan: Physical therapy and occupational therapy (9) Expressive aphasia (10) UTI (urinary tract infection) Assessment & Plan: Klebsiella. Continue ceftriaxone-See ID note. JONATHAN HUANG Feb 02, 2018 16:16
--- NOTE | 2018-02-03 11:07 | Discharge Summary ---
Discharge Summary Discharge Summary Discharge Summary DATE OF ADMISSION: 01/28/2018 DATE OF DISCHARGE: 02/02/2018 REASON FOR ADMISSION: 72 years old male with past medical history of CVA with left sided hemiparesis, hypertension hypercholesterolemia chronic kidney disease, seizure disorder was sent to the emergency department for evaluation from the long term facility for coffee-ground emesis and fever. Patient was given Tylenol prior to arrival. According to nursing staff at the facility maximum temperature was 102.4. Patient by himself was unable to provide much history. Upon evaluation in emergency room patient was afebrile, BUN 31, creatinine 2.2, hemoglobin 11.6, hematocrit 35.1, urinalysis with evidence of UTI. Chest x-ray revealed no acute cardiopulmonary pathology. Patient was admitted with diagnosis of hematemesis, probable GI bleeding, probable UTI, renal failure, anemia. HOSPITAL COURSE: Patient admitted to telemetry floor. Nephrology, GI and ID consults were requested. Patient was initially planned to have EGD next day. Patient was kept nothing by mouth and started on IV fluids with close monitoring of hemoglobin and hematocrit. Anemia workup was initiated. Next day WBC up to 24.4 and EGD was canceled secondary to leukocytosis. Anemia workup revealed low iron. Patient started on Venofer. Hemoglobin and hematocrit were closely monitored. Patient was started on PPI. CT of the abdomen and pelvis revealed constipation and likely rectal fecal impaction. Bowel regimen instituted. Stool OB 1 was negative and 1 was positive. GI closely followed ; hemoglobin and hematocrit remained on to baseline . Venofer 3 was given. GI recommended consider EGD procedure as necessarily. No further episodes of hematemesis. Patient was started on empiric antibiotic. Blood cultures were negative. Stool for C. difficile was negative. Influenza screen was negative. Urine culture grew Klebsiella pneumonia. According to infectious disease specialist , leukocytosis was likely secondary to urinary tract infection and possibly also reactive due to the GI bleeding. Leukocytosis resolved prior to discharge. Patient was transitioned to oral antibiotic as per ID recommendation to complete the course. [employer] closely followed. Patient initially was hydrated with close monitoring of renal parameters and electrolytes. Electrolytes were corrected as needed. Nephrotoxins were avoided. Renal ultrasound revealed bilateral renal lesions which appeared to be benign simple cysts. No evidence of hydronephrosis. Bilateral normal kidney echogenicity. Creatine without much change; initially was trending up and then down to 2.3 prior to discharge, likely chronic renal disease. Blood pressure was managed with current regimen and remained stable. Statin was continued. Bedside swallow evaluation and video swallow evaluation were done due to dysphagia secondary to history of CVA. Diet was resumed as per speech therapist recommendations with strict aspiration/ reflux precautions.Patient was able to tolerate diet. Patient was stable for discharge to long term facility. FINAL DIAGNOSES: 1. Hematemesis 2. Probable GI bleeding 3. Anemia 4. Urinary tract infection with Klebsiella 5. Leukocytosis, resolved 6. Acute renal failure on chronic 7. Cerebrovascular disease with left hemiparesis and expressive aphasia 8. Hypertension next. 9. Hyperlipidemia. 10. Seizure disorder DISCHARGE MEDICATIONS: See Medication Reconciliation list. DISCHARGE INSTRUCTIONS: Patient was discharged to long term facility. Patient to follow-up with medical doctor at the facility. Consider EGD as outpatient. I have been assigned to dictate discharge summary for this account. I was not involved in the patient's management. Tania Saucedo NP ([place]) Feb 03, 2018 11:07
== END 2018-02-02 16:00 | DRG 378 ==
LOC: EDBD 21:41 → EMR 22:09 → 2E 22:32 → EDBEDREQ 01-29 05:37 → 2E 01-29 13:42
DX: K92.2 Gastrointestinal hemorrhage, unspecified (principal); N17.9 Acute kidney failure, unspecified; N39.0 Urinary tract infection, site not specified; I69.354 Hemiplegia and hemiparesis following cerebral infarction affecting left non-dominant side; D64.9 Anemia, unspecified; I12.9 Hypertensive chronic kidney disease with stage 1 through stage 4 chronic kidney disease, or unspecified chronic kidney disease; N18.9 Chronic kidney disease, unspecified; E78.00 Pure hypercholesterolemia, unspecified; Z87.891 Personal history of nicotine dependence; G40.909 Epilepsy, unspecified, not intractable, without status epilepticus; R50.9 Fever, unspecified; B96.1 Klebsiella pneumoniae [K. pneumoniae] as the cause of diseases classified elsewhere; I69.320 Aphasia following cerebral infarction; Z91.19 Patient's noncompliance with other medical treatment and regimen; Z53.09 Procedure and treatment not carried out because of other contraindication
CPT/HCPCS: 36415; 71045; 74176; 74230; 76770; 80048; 80053; 80061; 80076; 81003; 82270; 82378; 82550; 82607; 82728; 82746; 82962; 82977; 83036; 83540; 83550; 83605; 83735; 83880; 84100; 84439; 84443; 84484; 84550; 85007; 85025; 85044; 85610; 85730; 86140; 86710; 86850; 86900; 86901; 87040; 87081; 87086; 87181; 87324; 93005; 99285